=== PATIENT | male | born 1950 | race Caucasian/White ===

== ENCOUNTER → 2020-05-25 13:55 | Outpatient (CLI) | payer MEDICARE, OTHER, SELFPAY ==
--- NOTE | 2020-05-25 14:01 | US_ITS ---
APPROVED REPORT Exam Type: Lower Extremity Segmental Pressures Template Fitter: Asiya Kennedy RDCS Indications Rest Pain: Pressures/Indices Right Indices Left Indices Brachial 139.00 mmHg Brachial 147.00 mmHg Low Thigh 159.00 mmHg 1.08 Low Thigh 164.00 mmHg 1.12 Calf 184.00 mmHg 1.25 Calf 196.00 mmHg 1.33 Ankle(PT) 166.00 mmHg 1.13 Ankle(PT) 174.00 mmHg 1.18 Ankle(DP) 181.00 mmHg 1.23 Ankle(DP) 183.00 mmHg 1.24 Digit 132.00 mmHg 0.90 Digit 134.00 mmHg 0.91 Findings R KATHLEEN 1.1 L KATHLEEN 1.2 R TBI .9 L TBI .9 NORMAL PULSES AND WAVEFORMS Conclusion R KATHLEEN 1.1 L KATHLEEN 1.2 R TBI .9 L TBI .9 NORMAL PULSES AND WAVEFORMS Normal appearing resting noninvasive lower extremity arterial study. Electronically signed by : Jp Padilla MD 05/26/2020 16:07:10
== END ==
PROVIDERS: PCP Internal Medicine; Visit Provider Internal Medicine
DX: M79.605 Pain in left leg (principal); M79.604 Pain in right leg; R53.1 Weakness; R09.89 Other specified symptoms and signs involving the circulatory and respiratory systems
CPT/HCPCS: 93923

== ENCOUNTER 2020-10-23 18:37 | Emergency (ER) | payer MEDICARE, OTHER, SELFPAY ==
[2020-10-23 18:45] VITALS: BP 125/69; PULSE 81; RESP 20; TEMP 37.7; O2SAT 97; BMI 22.4
--- NOTE | 2020-10-23 19:14 | HMH.EDUTC ---
[facility] [place] Disposition Clinical Impression: Viral syndrome, Exposure to COVID-19 virus Disposition: Home, Self-Care Condition on Discharge: Good Instructions: DI for Viral Syndrome, Preventing the Spread of Coronavirus Discharge Instructions Additional Instructions: Drink plenty of fluids. Take tylenol for pain or fever. Return if you begin to have difficulty breathing. Follow up with your regular doctor. GO TO THE ER FOR ANY WORSENING SYMPTOMS Prescriptions: Benzonatate [Tessalon Perle 100mg Cap] 100 mg PO TIDP PRN #30 cap PRN Reason: Cough Transmission Status: Received by [id number] Azithromycin [Z-Geovanny 250mg Tab*] 250 mg PO UD DOSE PK #6 tab Transmission Status: Received by [id number] Referrals: Elian Gallegos [Primary Care Provider] - Time of Disposition: 19:42 Medical Decision Making - Medical Records Medical records reviewed: No: I reviewed the patient's medical records. - Kun Inquiry Pt receiving controlled substance: No Vital Signs: 10/23/20 18:45 Temperature 99.8 F H Temperature Source Oral Pulse Rate [Right Brachial] 81 Respiratory Rate 20 Blood Pressure [Right Arm] 125/69 Blood Pressure Mean [Right Arm] 87 Blood Pressure Source [Right Arm] Automatic Cuff Blood Pressure Position [Right Arm] Sitting 02 Sat by Pulse Oximetry 97 Oxygen Delivery Method Room Air - Lab Data Lab Results 10/23/20 18:53: Influenza Type A Ag Negative, Influenza Type B Ag Negative Orders (Tests/Meds): ORDERS Category Date Time Status Chest XR -- portable [XR chest portable] Stat Exams 10/23/20 19:21 Taken Covid-19 Nasal PCR ([facility]) Routine Lab 10/23/20 18:55 Received [facility] [place] HPI - General Stated complaint: No Energy;No appetite;Rash Time Seen by Provider: 10/23/20 19:15 Mode of Arrival: Ambulatory Source of Information: Patient Limitations: No Limitations Description of Symptoms (Recalled from Triage Doc. by RN): PATIENT C/O RASH TO ABDOMEN AND BACK, DECREASED APPETITE, AND LETHARGY SINCE SUNDAY HEENT Symptoms (Recalled from RN notes): No Resp Symptoms (Recalled from RN notes): No Skin Symptoms (Recalled from RN notes): Yes MS Symptoms (Recalled from RN notes): No Functional Status (Recalled from RN notes): wnl - History of Present Illness Provider Complaint: He states that for the past 1 week he has had fatigue and a poor appetite. He also had a rash on his abdomen and back. He has a dry cough. He denies any fever, but he has been chilling. - Related Data Home Medications Medication Instructions Recorded Confirmed Amlodipine Besylate/Benazepril 1 each PO DAILY 10/23/20 10/23/20 [Amlodipine-Benazepril 5-40 mg] Metformin HCl [Metformin HCl ER] 1,000 mg PO BID 10/23/20 10/23/20 Metoprolol Tartrate [Lopressor 25 mg PO BID 10/23/20 10/23/20 25mg tablet] Pantoprazole Sodium [Protonix 40mg 40 mg PO HS 10/23/20 10/23/20 tablet] Pravastatin Sodium [Pravachol 40mg 40 mg PO HS 10/23/20 10/23/20 Tablet] Temazepam [Restoril] 15 mg PO HSP PRN 10/23/20 10/23/20 Previous Rx's Medication Instructions Recorded Azithromycin [Z-Geovanny 250mg Tab*] 250 mg PO UD DOSE PK #6 tab 10/23/20 Benzonatate [Tessalon Perle 100mg 100 mg PO TIDP PRN #30 cap 10/23/20 Cap] Allergies Allergy/AdvReac Type Severity Reaction Status Date / Time No Known Allergies Allergy Verified 10/23/20 19:10 - Worker's Comp Is this a Worker's Comp case?: No [facility] History - Hepatitis A Screen Drug use history?: No High risk sexual behaviors?: No History of sexually transmitted infection?: No Currently employed?: No Childcare worker?: No Do you have indoor plumbing?: Yes Do you have electricity?: Yes Attestation statement:: This patient has been screened for Hepatitis A risk factors. I have reviewed the patient's past medical history: Yes Medical History: Reports:: Diabetes Mellitus Type 2 Denies:: Diabetes Mellitus Type 1 - Social History Smoking Statu
--- NOTE | 2020-10-23 19:21 | XR_ITS ---
PROCEDURE: XR CHEST PORTABLE CLINICAL HISTORY: COUGH COMPARISON: CR CXR1 CHEST-PORTABLE from 07/11/2014 CR XR CHEST 2V from 11/01/2019 FINDINGS: The cardiomediastinal silhouette and pulmonary vascularity are within normal limits. The lungs are clear without infiltrates, suspicious nodules, or pleural effusions. No acute bony abnormalities. IMPRESSION: No acute findings. Dictated by: Dr. Vivek Ledesma MD 10/24/2020 08:04 Dr. Vivek Ledesma MD in [place] 10/24/2020 08:04
[2020-10-23 19:32] LABS: UTC Influenza A Antigen Negative (Negative); UTC Influenza B Antigen Negative (Negative)
[2020-10-23 19:43] VITALS: BP 125/69; PULSE 81; RESP 20; TEMP 37.7; O2SAT 97
--- NOTE | 2020-10-23 22:26 | PC.NURSE ---
COVID results reported to ER
--- NOTE | 2020-10-24 09:10 | PC.NURSE ---
patient notified of positive covid results
== END 2020-10-23 19:49 | disposition home or self-care (01) ==
LOC: ER 18:45 → UTC 18:45
PROVIDERS: Emergency Provider Nurse Practitioner Family; PCP Internal Medicine
DX: U07.1 COVID-19 (principal); E11.9 Type 2 diabetes mellitus without complications; Z79.84 Long term (current) use of oral hypoglycemic drugs; Z79.899 Other long term (current) drug therapy
CPT/HCPCS: G0463; 71045; 87804; 99202; U0003

== ENCOUNTER 2020-10-26 11:55 | Outpatient (CLI) | payer MEDICARE, OTHER, SELFPAY ==
[2020-10-26] VITALS (10 sets, daily range): BP systolic 133–177; BP diastolic 68–117; PULSE 65–80; RESP 16–20; TEMP 36.8–37.4; O2SAT 91–95
--- NOTE | 2020-10-26 13:44 | PC.NURSE ---
pt infusion complete at this time.
--- NOTE | 2020-10-26 16:12 | PC.NURSE ---
MESERET Serrano obtaining VS prior to d/c of pt, temperature noted to be 103.3 orally. Other VS include bp 156/79 HR 74, Sa02 91% on RA, RR 20. Pt is shivering, no complaints. Notified Dr. Gallegos of abnormal temperature. Dr. Gallegos stated to give pt Tylenol 1000 mg PO one time dose, instruct pt to monitor temperature at home and treat his symptoms. Notified pharmacy of the above, spoke with Ryan.
--- NOTE | 2020-10-26 18:54 | PC.NURSE ---
Talked with pt at home, who states that he feels ok. Informed if he has any worse symptoms to return to the ER
== END 2020-10-26 17:48 | disposition home or self-care (01) ==
PROVIDERS: PCP Internal Medicine; Visit Provider Internal Medicine
DX: U07.1 COVID-19 (principal)
CPT/HCPCS: 96365

== ENCOUNTER → 2021-03-22 16:44 | Outpatient (CLI) | payer MEDICARE, OTHER, SELFPAY ==
--- NOTE | 2021-03-22 16:47 | MR_ITS ---
PROCEDURE: MR LUMBAR SPINE WO CON CLINICAL INDICATION: LBP, LEFT BUTTOCK PAIN Lt hip pain x1.5months. Burning sensation in lt foot. Pain in lower lt leg. No prior. COMPARISON: CT CT ABDOMEN PELVIS WO CON from 11/01/2019 TECHNIQUE: Standard multiplanar multiecho sequences are performed without contrast. 3-D MIP and myelographic images are also rendered and reviewed FINDINGS: There is normal alignment. The spinal cord ends at the T12-L1 level. L1-L2: Mild degenerative disc disease with facet and ligamentum hypertrophic change with mild bilateral lateral recess and foraminal narrowing. L2-L3: Bulging disc with facet and ligamentum hypertrophic change causing severe right lateral recess narrowing and moderate left lateral recess narrowing and with moderate bilateral foraminal narrowing with borderline bony canal stenosis. There is transverse narrowing of the canal is well. L3-L4: Mild facet and ligamentum hypertrophic change with mild bilateral foraminal narrowing. L4-5: Bulging disc with facet and ligamentum hypertrophic change. There is moderate to severe right foraminal narrowing and severe left foraminal narrowing with hypertrophic change from the left superior facet of L5 impinging upon the exiting left L4 nerve root. There is 3 mm anterolisthesis of L4. There is transverse narrowing of the canal at 10 mm with bilateral lateral recess narrowing left greater than right L5-S1: L5 is a transitional segment. There is mild facet hypertrophic change slightly greater on the left. IMPRESSION: Abnormal MRI of the lumbar spine with multilevel lumbar spondylosis resulting in lateral recess and foraminal narrowing and borderline canal stenosis. Please see above for detailed description at each level. No extruded herniated disc Dictated by: Jp Padilla MD 03/24/2021 08:27 Jp Padilla MD in [place] 03/24/2021 08:27
== END ==
PROVIDERS: PCP Internal Medicine; Visit Provider Internal Medicine
DX: M54.5 Low back pain (principal)
CPT/HCPCS: 72148; 76376

== ENCOUNTER → 2021-04-11 14:49 | Outpatient (POV) | payer MEDICARE, OTHER, SELFPAY ==
[2021-04-11 15:15] VITALS: BP 118/88; PULSE 75; RESP 18; O2SAT 97; BMI 22.4
--- NOTE | 2021-04-11 15:53 | HMH.PMCON ---
Assessment and Plan (1) Degenerative joint disease (DJD) of lumbar spine Status: Chronic Category: Medical Code(s): M47.816 - Spondylosis without myelopathy or radiculopathy, lumbar region (2) Lumbar radiculopathy Status: Chronic Category: Medical Code(s): M54.16 - Radiculopathy, lumbar region - Assessment and plan all Dx Assessment and Plan for all problems:: Patient is noted to have nerve root impingement on his MRI at L4 root. We will schedule him for a lumbar epidural steroid injection at L4-L5. He is not on anticoagulation therapy. He has tried gabapentin in the past for his numbness and tingling in his feet, however, he did not get much relief. We will order him Lyrica 75 mg 1 tablet p.o. twice daily. We will see him back in clinic after his epidural steroid injection to reevaluate his symptoms. He will continue with home stretching and ice and heat therapies as well as anti-inflammatories until then. Risks and benefits of the procedure have been explained to the patient. Patient would like to proceed with the procedure. Risks and benefits of the medication have been explained in detail to the patient. The patient has been advised to consult with his/her primary care provider and pharmacist regarding drug-drug interaction of medications currently prescribed. Possible side effects of corticosteroids have been discussed with the patient. Patient has been instructed to contact the clinic with any concerns before the next appointment. Dr. Peralta has reviewed this note and agrees with this plan of care. This note was dictated using voice recognition software and make contain errors or omissions. HPI - Data of Consult Patient: new to practice Consult date: 04/11/21 Requesting Physician: Therese Hall APRN Primary Care Provider: Elian Gallegos - Consult Narrative Reason for consult: Low back pain History of present illness: Mr. Keene is a 71 year old male who presents today for consultation for low back pain. Patient says his pain is radiating into his low back, left hip and left leg and foot. Pain has been ongoing for the last 2 to 3 years. He says the pain also goes into the outer area of his left calf. He says the pain is worse with lifting. He denies any pain with leaning forward, however. Patient says he did see a neurosurgeon in the past who advised the patient he did need to undergo injective therapy, however, he deferred injections at that time. Unfortunately, the pain should not's pain has worsened. He has tried and failed conservative therapies of physical therapy for greater than 6 weeks along with continued home stretching and ice and heat therapies. He has also tried anti-inflammatories with no relief. He is here today for possible injective therapy. He is having numbness and tingling in his left foot. He says it is a severe burning sensation. He has been given gabapentin in the past which did not give him much relief. He rates his pain a 7 out of 10 today. CC: Therese Hall APRN [facility] History I have reviewed the patient's past medical history: Yes Medical History: Reports:: Diabetes Mellitus Type 2 Denies:: Diabetes Mellitus Type 1 *Have you ever received a pneumonia vaccine?: Yes *Have you received a flu vaccine this season?: Yes - *Social History Smoking Status: Current every day smoker Tobacco Type: smokeless tobacco # Packs/Day (cigarettes): 0 Alcohol Intake: never Alcohol Intake Frequency:: holidays/special occasions only *Occupational Status:: retired Housing: house Household Members: spouse *Travel in the last 8 weeks: None Family Hx:: No significant family history Review of Systems - Review of Systems Review of Systems General: No recent weight changes, no fever, no sleep disturbances Respiratory: No cough, no shortness of air, no recurring pulmonary infections Cardiovascular/peripheral vascular: No chest pain, no palpitations, no edema, no shortness of br
== END ==
PROVIDERS: PCP Internal Medicine; Visit Provider Clinical Nurse Specialist Family Health
DX: M47.896 Other spondylosis, lumbar region (principal); M54.16 Radiculopathy, lumbar region
CPT/HCPCS: 99202; G0463

== ENCOUNTER 2021-04-22 11:08 | Day surgery (SDC) | payer MEDICARE, OTHER, SELFPAY ==
[2021-04-22 11:25] VITALS: BP 139/81; PULSE 67; RESP 18; TEMP 36.6; O2SAT 97; BMI 22.8
[2021-04-22 11:58] VITALS: BP 128/78; PULSE 75; RESP 18; O2SAT 98
[2021-04-22 11:59] VITALS: BP 136/82; PULSE 71; RESP 18; O2SAT 99
--- NOTE | 2021-04-22 12:09 | HMH.PMPROC ---
- Procedure Date: 04/22/21 Time: 12:09 Anesthesiologist:: Delmy Barrett MD Complications:: None Pre-procedure Diagnosis:: degenerative disc disease of the lumbar spine, lumbar radiculopathy Post-procedure Diagnosis:: Same Indications for Procedure:: Is a very pleasant 71-year-old white male who presents today with chronic low back pain dating primarily to his left lower extremity related to the above diagnosis. He has trialed and failed conservative treatment including oral pain medication and home stretching program. He is currently on Lyrica 75 mg 1 tablet p.o. twice daily. The plan for today is for the patient to undergo lumbar epidural steroid injection at L4-L5 #1. Procedure Details:: Informed consent was obtained and the risk and benefits of the procedure was explained to the patient. The patient was taken to the procedure room. The patient was placed prone on the procedure table. The patient was prepped and draped in sterile fashion. C-arm fluoroscopy was used to view the lumbar spine. Skin and subcutaneous tissues were anesthetized using lidocaine. I placed an 18-gauge epidural needle and advanced into the L4-L5 interspace using fluoroscopic guidance and [id number] to air and saline. After confirmation of needle placement in the epidural space with dye I injected 2 mL of lidocaine 1.0% with Depo-Medrol 80 mg. Patient tolerated the procedure well with no complications. Plan and Disposition:: We will follow-up with this patient in 2 weeks. Will reevaluate pain symptoms at that time.
[2021-04-22 12:20] VITALS: BP 137/80; PULSE 64; RESP 20; O2SAT 97
== END 2021-04-22 12:20 | disposition home or self-care (01) ==
LOC: SC.PAINP 11:08
PROVIDERS: PCP Internal Medicine; Visit Provider Anesthesiology Pain Medicine
DX: M51.16 Intervertebral disc disorders with radiculopathy, lumbar region (principal); E11.9 Type 2 diabetes mellitus without complications; I10 Essential (primary) hypertension; Z72.0 Tobacco use; Z79.899 Other long term (current) drug therapy
CPT/HCPCS: 62323; J1040; Q9966

== ENCOUNTER → 2021-05-12 15:37 | Outpatient (POV) | payer MEDICARE, OTHER, SELFPAY ==
[2021-05-12 15:42] VITALS: BP 138/85; PULSE 78; RESP 18; O2SAT 99; BMI 23.0
--- NOTE | 2021-05-13 07:04 | HMH.PAINSOAP ---
[facility] Pain Management SOAP Note Subjective:: Patient is a pleasant 71-year-old white male who presents today for follow-up. He is being treated for degenerative disc disease lumbar spine with lumbar radiculopathy symptoms. Patient recently underwent a lumbar epidural steroid injection at L4-L5 number 1 injection. He got excellent relief with this injection. He says he got relief for more than 2 weeks. Patient got 80% relief of his symptoms. His pain has gradually returned. He says his pain is in his low back radiating into his left lower extremity. He was much more functional following the injection and had less pain. Today, his pain is a 6 out of 10. He says he is still having weakness in his bilateral lower extremities, worse to the left leg. Patient is diabetic. He does say that the previous injection did raise his blood sugar into the 400s. He says that he was able to monitor and treat his blood glucose levels appropriately, however. He has tried and failed conservative therapies in the past which include physical therapy for more than 6 weeks and continued home stretching. He has also continue with ice and heat therapies and anti-inflammatories. The patient is not on anticoagulation therapy. He would like to proceed with a second injection. Review of Systems General: No recent weight changes, no fever, no sleep disturbances Respiratory: No cough, no shortness of air, no recurring pulmonary infections Cardiovascular/peripheral vascular: No chest pain, no palpitations, no edema, no shortness of breath Gastrointestinal: No new onset incontinence, normal bowel movements reported Genitourinary: No new onset incontinence Musculoskeletal: Low back pain with radiation into lower extremities, worse to left, weakness in left lower extremity Psychiatric: Normal mood/affect Neurological: Weakness bilateral lower extremities, worse to left Objective:: Physical exam General: Alert and oriented x3, no acute distress, pleasant and cooperative, [on room air] Lungs: Respirations even and unlabored, symmetrical chest expansion Eyes: PERRL Musculoskeletal: Flexion and extension of [] lumbar spine somewhat guarded secondary to pain, deep tendon reflexes normal, strength in upper and lower extremities [5/5], [abnormal gait noted] Neurological: Speech clear, barrel inspector equal, no gross sensory deficit Assessment:: Degenerative disc disease lumbar spine with lumbar radiculopathy symptoms Plan:: We will schedule the patient for repeat lumbar epidural steroid injection #2. He is not on any anticoagulation therapy. He got excellent relief with his previous injection. The patient got 80% relief of his symptoms. We will see him back after the injection to reevaluate his symptoms. He is diabetic and did have blood glucose levels elevate into the 400s following his first injection. He will monitor his blood glucose levels with the next injection and treat accordingly. Risks and benefits of the procedure have been explained to the patient. Patient would like to proceed with the procedure. Possible side effects of corticosteroids have been discussed with the patient. Patient has been instructed to contact the clinic with any concerns before the next appointment. Dr. Peralta has reviewed this note and agrees with this plan of care. This note was dictated using voice recognition software and make contain errors or omissions. [facility] History I have reviewed the patient's past medical history: Yes Medical History: Reports:: Diabetes Mellitus Type 2, Hypertension Denies:: Cancer, Diabetes Mellitus Type 1, MRSA, Seizures *Have you ever received a pneumonia vaccine?: Yes *Have you received a flu vaccine this season?: Yes Other Surgeries: Yes: Cholecystectomy, Other (stomach surgery) Amputation: No Fractures: No - *Social History Smoking Status: Current every day smoker Tobacco Type: smokeless tobacco # Packs/Day (cigarettes): 0 Alcohol Intake: nev
== END ==
PROVIDERS: PCP Internal Medicine; Visit Provider Clinical Nurse Specialist Family Health
DX: M51.16 Intervertebral disc disorders with radiculopathy, lumbar region (principal)
CPT/HCPCS: 99212; G0463

== ENCOUNTER 2021-05-27 10:58 | Day surgery (SDC) | payer MEDICARE, OTHER, SELFPAY ==
[2021-05-27 11:09] VITALS: BP 154/80; PULSE 62; RESP 18; TEMP 36.7; O2SAT 98; BMI 22.4
[2021-05-27 11:16] VITALS: BP 141/78; PULSE 69; RESP 18; O2SAT 94
[2021-05-27 11:18] VITALS: BP 133/79; PULSE 65; RESP 18; O2SAT 99
--- NOTE | 2021-05-27 11:31 | HMH.PMPROC ---
- Procedure Date: 05/27/21 Time: 11:31 Anesthesiologist:: Delmy Barrett MD Complications:: None Pre-procedure Diagnosis:: Degenerative disease of the lumbar spine, lumbar radiculopathy Post-procedure Diagnosis:: Same Indications for Procedure:: This patient is a very pleasant 71-year-old white male who presents today with chronic low back pain radiating into both legs related to the above diagnosis. He states that the left leg pain is slightly worse than the right leg pain. He has tried and failed conservative treatment including oral pain medication and home stretching program for greater than 6 weeks. He has also undergone a lumbar epidural steroid injection in the past at L4-L5 #1 and states that he got 80% pain relief for approximately 1 month; however today states that the pain has returned. He is requesting a repeat injection. Of note, he is a diabetic and had transiently elevated blood sugars with the last injection. He states that he closely monitored his blood sugars as he was advised. The plan for today is for the patient to undergo repeat lumbar epidural steroid injection fluoroscopy at L4-L5 #2. Procedure Details:: Informed consent was obtained and the risk and benefits of the procedure was explained to the patient. The patient was taken to the procedure room. The patient was placed prone on the procedure table. The patient was prepped and draped in sterile fashion. C-arm fluoroscopy was used to view the lumbar spine. Skin and subcutaneous tissues were anesthetized using lidocaine. I placed an 18-gauge epidural needle and advanced into the for L4-L5 interspace using fluoroscopic guidance and [id number] to air and saline. After confirmation of needle placement in the epidural space with dye I injected 1 mL of lidocaine 1.0% with Depo-Medrol 80 mg. Patient tolerated the procedure well with no complications. Plan and Disposition:: We will follow-up with this patient in 2 weeks. Will reevaluate pain symptoms at that time. I discussed with the patient today given that he is a diabetic he should closely monitor his glucose level with a glucometer for the next 48 to 72 hours. Should he experience any symptoms such as headache, blurry vision, double vision, or any other concerning symptoms he should be evaluated by his primary care physician, urgent care, or the ER. Patient verbalized understanding. We will follow-up with him in 2 weeks for reassessment.
[2021-05-27 11:34] VITALS: BP 155/86; PULSE 59; RESP 18; O2SAT 98
== END 2021-05-27 11:35 | disposition home or self-care (01) ==
LOC: SC.PAINP 10:59
PROVIDERS: PCP Internal Medicine; Visit Provider Anesthesiology Pain Medicine
DX: M51.16 Intervertebral disc disorders with radiculopathy, lumbar region (principal); I10 Essential (primary) hypertension; E11.9 Type 2 diabetes mellitus without complications; K21.9 Gastro-esophageal reflux disease without esophagitis; M19.90 Unspecified osteoarthritis, unspecified site; Z90.49 Acquired absence of other specified parts of digestive tract
CPT/HCPCS: 62323; J1040; Q9966

== ENCOUNTER → 2021-06-30 10:07 | Outpatient (POV) | payer MEDICARE, OTHER, SELFPAY ==
[2021-06-30 10:14] VITALS: BP 133/85; PULSE 67; RESP 18; O2SAT 100; BMI 22.4
--- NOTE | 2021-06-30 10:55 | HMH.PAINSOAP ---
[facility] Pain Management SOAP Note Subjective:: Her patient is a 71-year-old white male who presents today for follow-up after lumbar epidural steroid injection #2 at L4-L5. Patient says that he did well with the injection. He says that he got about 70 to 80% relief. The pain is slowly returning, however. Patient is having pain into the low back beltline area. He says that the pain is worse when he is standing and walking and does improve somewhat with sitting. The pain does radiate into bilateral lower extremities as well. He does say the pain is worse to the left leg. He is trying failed conservative therapies of physical therapy, home stretching, anti-inflammatories. Patient is planning to travel to [place] in the next week and would like to undergo his repeat injection prior to leaving. He will be doing a great deal of walking. We will see if we can work the patient into the scheduling for a repeat injection. Review of Systems General: No recent weight changes, no fever, no sleep disturbances Respiratory: No cough, no shortness of air, no recurring pulmonary infections Cardiovascular/peripheral vascular: No chest pain, no palpitations, no edema, no shortness of breath Gastrointestinal: No new onset incontinence, normal bowel movements reported Genitourinary: No new onset incontinence Musculoskeletal: Low back pain with radiation into bilateral lower extremities, worse to left leg Psychiatric: [Normal mood/affect] Neurological: [Denies weakness in extremities], [denies balance issues] Objective:: Physical exam General: Alert and oriented x3, no acute distress, pleasant and cooperative, [on room air] Lungs: Respirations even and unlabored, symmetrical chest expansion Eyes: PERRL Musculoskeletal: Flexion and extension of lumbar [spine] somewhat guarded secondary to pain, strength in upper and lower extremities [5/5], [antalgic gait noted] Neurological: Speech clear, [lithographic etcher equal], no gross sensory deficit Assessment:: Degenerative disc disease lumbar spine with lumbar radiculopathy symptoms Plan:: We will schedule the patient for his #3 lumbar epidural steroid injection at L4-L5. He is not on any anticoagulation therapy. We will plan to see him back after the injection for reevaluation of symptoms. He has been instructed to contact clinic if he has any concerns for his next plan. Possible side effects of corticosteroids have been discussed with the patient. Risks and benefits of the procedure have been explained to the patient. Patient would like to proceed with the procedure. Patient has been instructed to contact the clinic with any concerns before the next appointment. Dr. Peralta has reviewed this note and agrees with this plan of care. This note was dictated using voice recognition software and make contain errors or omissions. [facility] History I have reviewed the patient's past medical history: Yes Medical History: Reports:: Diabetes Mellitus Type 2, Hyperlipidemia, Hypertension Denies:: Cancer, Diabetes Mellitus Type 1, MRSA, Seizures *Have you ever received a pneumonia vaccine?: Yes *Have you received a flu vaccine this season?: No Other Medical History: Reports: Arthritis Other Surgeries: Yes: Cholecystectomy, Other (stomach surgery) Amputation: No Fractures: No - *Social History Smoking Status: Current every day smoker Tobacco Type: smokeless tobacco # Packs/Day (cigarettes): 0 Alcohol Intake: never Alcohol Intake Frequency:: holidays/special occasions only *Occupational Status:: unemployed Housing: house Household Members: other *Travel in the last 8 weeks: None Family Hx:: No significant family history
== END ==
PROVIDERS: PCP Internal Medicine; Visit Provider Clinical Nurse Specialist Family Health
DX: M51.16 Intervertebral disc disorders with radiculopathy, lumbar region (principal)
CPT/HCPCS: 99212; G0463

== ENCOUNTER 2021-07-01 12:53 | Day surgery (SDC) | payer MEDICARE, OTHER, SELFPAY ==
[2021-07-01 13:17] VITALS: BP 145/79; PULSE 67; RESP 18; TEMP 37; O2SAT 97; BMI 22.4
[2021-07-01 13:30] VITALS: BP 132/80; PULSE 68; RESP 18; O2SAT 99
--- NOTE | 2021-07-01 13:39 | P.PCN_ITS ---
- Procedure Date: 07/01/21 Time: 13:39 Anesthesiologist:: Will Peralta MD Complications:: None Pre-procedure Diagnosis:: Degenerative disc disease of lumbar spine with lumbar radiculopathy symptoms Post-procedure Diagnosis:: Same Indications for Procedure:: This patient is a pleasant 71-year-old white male who we are treating for low back pain with lumbar radiculopathy symptoms. He done very well with his previous epidural steroid injections. He was 89% better. He is leaving for [place] on . Pain is starting to return. We will do repeat lumbar epidural steroid injection today to help him prior to his trip. Procedure Details:: Informed consent was obtained and the risk and benefits of the procedure was explained to the patient. The patient was taken to the procedure room. The patient was placed prone on the procedure table. The patient was prepped and draped in sterile fashion. C-arm fluoroscopy was used to view the lumbar spine. Skin and subcutaneous tissues were anesthetized using lidocaine. I placed an 18-gauge epidural needle and advanced into the L4-L5 interspace using fluoroscopic guidance and [id number] to air. After confirmation of needle placement in the epidural space with dye I injected 2 mL of lidocaine 1.5% with Depo-Medrol 80 mg. Patient tolerated the procedure well with no complications. Plan and Disposition:: We will follow-up with him in 2 weeks. Will reevaluate symptoms at that time.
[2021-07-01 14:02] VITALS: BP 141/78; PULSE 66; RESP 18; O2SAT 98
== END 2021-07-01 14:03 | disposition home or self-care (01) ==
LOC: SC.PAINP 12:54
PROVIDERS: PCP Internal Medicine; Visit Provider Anesthesiology
DX: M51.16 Intervertebral disc disorders with radiculopathy, lumbar region (principal); E78.5 Hyperlipidemia, unspecified; I10 Essential (primary) hypertension; M19.90 Unspecified osteoarthritis, unspecified site; E11.9 Type 2 diabetes mellitus without complications; K21.9 Gastro-esophageal reflux disease without esophagitis; Z79.899 Other long term (current) drug therapy
CPT/HCPCS: 62323; J1040; Q9966

== ENCOUNTER → 2021-07-26 10:16 | Outpatient (POV) | payer MEDICARE, OTHER, SELFPAY ==
[2021-07-26 10:35] VITALS: BP 147/83; PULSE 69; RESP 18; O2SAT 99; BMI 22.4
--- NOTE | 2021-07-26 11:21 | HMH.PAINSOAP ---
[facility] Pain Management SOAP Note Subjective:: Patient is a 71-year-old white male who presents today for follow-up after lumbar epidural steroid injection. He did undergo injective therapy on 07/01/2021 at the L4-L5 area. Patient says due to an increased blood glucose at the day of the injection, he was only given half of the corticosteroid dose. Patient says that he does not feel he got significant relief with the injection. Previous injections were performed by Dr. Barrett. Patient feels he got better relief with Dr. Barrett perform the injections. He is having significant pain to the low back with radiation into bilateral lower extremities. He says that the pain causes numbness and tingling in his legs. He has been managed with Lyrica but says the insurance is not covering the medication. He is having to pay [id number]. He has tried taking gabapentin in the past and feels it did give him some relief. He would like to go back to gabapentin. Patient says the first 2 injections gave him up to 80% relief for 2 to 3 months. He would like to proceed with a repeat injection, but at a lower level due to the pain worsening below the area where he generally has pain. He does rate his pain a 6 out of 10 today. He has asked that Dr. Barrett perform the injection. He has tried and failed conservative therapies of physical therapy for more than 6 weeks and home stretching. He is unable to tolerate anti-inflammatories. Review of Systems General: No recent weight changes, no fever, no sleep disturbances Respiratory: No cough, no shortness of air, no recurring pulmonary infections Cardiovascular/peripheral vascular: No chest pain, no palpitations, no edema, no shortness of breath Gastrointestinal: No new onset incontinence, normal bowel movements reported Genitourinary: No new onset incontinence Musculoskeletal: Low back pain with radiation into bilateral lower extremities Psychiatric: [Normal mood/affect] Neurological: [Denies weakness in extremities], [denies balance issues] Objective:: Physical exam General: Alert and oriented x3, no acute distress, pleasant and cooperative, [on room air] Lungs: Respirations even and unlabored, symmetrical chest expansion Eyes: PERRL Musculoskeletal: Flexion and extension of lumbar [spine] somewhat guarded secondary to pain, strength in upper and lower extremities [5/5], [antalgic gait noted] Neurological: Speech clear, [risk assessor equal], no gross sensory deficit Assessment:: Degenerative disc disease lumbar spine with lumbar radiculopathy symptoms Plan:: We will stop the patient's Lyrica and start him on gabapentin 300 mg 1 tablet p.o. twice daily. He has taken this before and gotten some relief. He was getting some relief with Lyrica, but is having to pay [id number] for the medication. We will schedule him for a #1 lumbar epidural steroid injection at L5-S1. The patient is not on any anticoagulation therapy. We will plan to see him back after the injection for reevaluation of symptoms. He would like this injection to be performed in September. He will not be available to have the injection before then. We will follow-up with the patient, however, in 1 month to see if gabapentin is relieving his pain. Risks and benefits of the medication have been explained in detail to the patient. If side effects do present with the medication, she has been advised to stop the medication immediately and call the clinic. The patient has been advised to consult with his/her primary care provider and pharmacist regarding drug-drug interaction of medications currently prescribed. Risks and benefits of the medication have been explained in detail to the patient. The patient has been advised to consult with his/her primary care provider and pharmacist regarding drug-drug interaction of medications currently prescribed. Patient has been prescribed a controlled substance after being counseled on the medication, medicati
== END ==
PROVIDERS: Visit Provider Clinical Nurse Specialist Family Health
DX: M51.16 Intervertebral disc disorders with radiculopathy, lumbar region (principal)
CPT/HCPCS: 99212; G0463

== ENCOUNTER 2021-09-23 10:01 | Day surgery (SDC) | payer MEDICARE, OTHER, SELFPAY ==
[2021-09-23 10:27] VITALS: BP 131/73; PULSE 68; RESP 18; TEMP 36.4; O2SAT 99; BMI 22.4
[2021-09-23 10:49] VITALS: BP 135/87; PULSE 68; RESP 18; O2SAT 100
[2021-09-23 10:51] VITALS: BP 129/79; PULSE 70; RESP 18; O2SAT 100
[2021-09-23 11:03] VITALS: BP 148/85; PULSE 67; RESP 20; O2SAT 99
--- NOTE | 2021-09-23 11:03 | HMH.PMPROC ---
- Procedure Date: 09/23/21 Time: 11:03 Anesthesiologist:: Will Peralta MD Complications:: None Pre-procedure Diagnosis:: Degenerative disc disease of lumbar spine with lumbar radiculopathy symptoms Post-procedure Diagnosis:: Same Indications for Procedure:: Patient is a pleasant 71-year-old white male who we are treating for low back pain with lumbar radiculopathy symptoms. He has increasing pain in his back radiating down his legs. Left is greater than right. We will do a lumbar pleural steroid injection today to see if this helps with his pain symptoms. Procedure Details:: Informed consent was obtained and the risk and benefits of the procedure was explained to the patient. The patient was taken to the procedure room. The patient was placed prone on the procedure table. The patient was prepped and draped in sterile fashion. C-arm fluoroscopy was used to view the lumbar spine. Skin and subcutaneous tissues were anesthetized using lidocaine. I placed an 18-gauge epidural needle and advanced into the L4-L5 interspace using fluoroscopic guidance and [id number] to air. After confirmation of needle placement in the epidural space with dye I injected 2 mL of lidocaine 1.5% with Depo-Medrol 80 mg. Patient tolerated the procedure well with no complications. Plan and Disposition:: We will follow-up with him in 2 weeks. Will reevaluate symptoms at that time.
== END 2021-09-23 11:04 | disposition home or self-care (01) ==
LOC: SC.PAINP 10:02
PROVIDERS: PCP Internal Medicine; Visit Provider Anesthesiology
DX: M51.16 Intervertebral disc disorders with radiculopathy, lumbar region (principal); E78.5 Hyperlipidemia, unspecified; I10 Essential (primary) hypertension; E11.9 Type 2 diabetes mellitus without complications; Z72.0 Tobacco use; Z90.49 Acquired absence of other specified parts of digestive tract; Z79.4 Long term (current) use of insulin; Z79.899 Other long term (current) drug therapy
CPT/HCPCS: 62323; J1040; Q9966

== ENCOUNTER → 2021-10-11 10:15 | Outpatient (POV) | payer MEDICARE, OTHER, SELFPAY ==
[2021-10-11 10:20] VITALS: BP 174/93; PULSE 82; RESP 18; O2SAT 98; BMI 22.4
--- NOTE | 2021-10-11 10:39 | HMH.PAINSOAP ---
[facility] Pain Management SOAP Note Subjective:: Patient is a 71-year-old white male who presents today for follow-up after lumbar epidural steroid injection at L4-L5. Patient says that he did well with the injection and rates his pain a 4 out of 10 today. He does get approximately 3 to 4 weeks of relief with the injections at about 70 to 80%. He does say he has difficulty standing and walking for prolonged periods due to pain. He does do outdoor activity in his garage and says that the pain does worsen when outside and for prolonged walking. He does not want to schedule any further injective therapy until December. He does continue with home stretching. Review of Systems General: No recent weight changes, no fever, no sleep disturbances Respiratory: No cough, no shortness of air, no recurring pulmonary infections Cardiovascular/peripheral vascular: No chest pain, no palpitations, no edema, no shortness of breath Gastrointestinal: No new onset incontinence, normal bowel movements reported Genitourinary: No new onset incontinence Musculoskeletal: Radiation into bilateral lower extremities Psychiatric: [Normal mood/affect] Neurological: [Denies weakness in extremities], [denies balance issues] Objective:: Physical exam General: Alert and oriented x3, no acute distress, pleasant and cooperative Lungs: Respirations even and unlabored, symmetrical chest expansion Eyes: PERRL Musculoskeletal: Flexion and extension of lumbar [spine] somewhat guarded secondary to pain, [antalgic gait noted] Neurological: Speech clear, no gross sensory deficit Assessment:: Degenerative disc disease lumbar spine with lumbar radiculopathy symptoms Plan:: We will start the patient on tramadol 50 mg 1 tablet p.o. 3 times daily. We will see if this helps in between injective therapy. We will schedule the patient to return in December. He would like to undergo injective therapy in December. Risks and benefits of the medication have been explained in detail to the patient. The patient does understand the risk of dependence on the medication when given over a prolonged period. Patient has been advised of risks of oversedation with the prescribed medication. Narcan has been offered to the paitent in the event of oversedation. Patient has been advised that a family member should also be educated regarding administration of Narcan. The patient has been advised to consult with his/her primary care provider and pharmacist regarding drug-drug interaction of medications currently prescribed. Patient has been prescribed a controlled substance after being counseled on the medication, medication safety, and possible side effects. LOS report has been obtained and reviewed prior to prescription and found to be appropriate. Opioid contract was reviewed and signed by the patient, and that they have agreed to all of the terms set forth by our compliance program. Patient has been instructed to contact the clinic with any concerns before the next appointment. Dr. Peralta has reviewed this note and agrees with this plan of care. This note was dictated using voice recognition software and make contain errors or omissions. [facility] History I have reviewed the patient's past medical history: Yes Medical History: Reports:: Diabetes Mellitus Type 2, Hyperlipidemia, Hypertension Denies:: Cancer, Diabetes Mellitus Type 1, MRSA, Seizures *Have you ever received a pneumonia vaccine?: Yes *Have you received a flu vaccine this season?: Yes Other Medical History: Reports: Arthritis. Denies: Blood Transfusion Reaction Other Surgeries: Yes: Cholecystectomy, Other (stomach surgery) Amputation: No Fractures: No - *Social History Smoking Status: Current every day smoker Tobacco Type: smokeless tobacco # Packs/Day (cigarettes): 0 Alcohol Intake: never Alcohol Intake Frequency:: holidays/special occasions only *Occupational Status:: unemployed Housing: house Household Members: s
== END ==
PROVIDERS: Visit Provider Clinical Nurse Specialist Family Health
DX: M51.16 Intervertebral disc disorders with radiculopathy, lumbar region (principal)
CPT/HCPCS: 99212; G0463

== ENCOUNTER 2021-10-28 10:32 | Emergency (ER) | payer MEDICARE, OTHER, SELFPAY ==
[2021-10-28 10:33] VITALS: BP 139/83; PULSE 72; RESP 20; TEMP 37.1; O2SAT 99; BMI 22.4
[2021-10-28 11:04] VITALS: BP 137/79; PULSE 63; O2SAT 97
[2021-10-28 11:10] LABS: Coronavirus 19, PCR Not Detected (NotDetected); Influenza A, PCR Not Detected (NotDetected); Influenza B, PCR Not Detected (NotDetected)
[2021-10-28 11:21] LABS: Chloride 99 mmol/L (98-107); Sodium 135 mmol/L (136-145)
[2021-10-28 11:22] LABS: Basophils # 0.1 K/mm3 (0-0.2); Basophils % 2.4 % (0.1-2.0); Eosinophils # 0.1 K/mm3 (0.0-0.4); Eosinophils % 2.9 % (0.1-12.0); Hemoglobin 16.1 g/dL (14.1-18.0); Lymphocytes # 1.6 K/mm3 (0.7-4.5); Lymphocytes % 38.3 % (10-50); Mean Corpuscular HGB Conc 32.9 g/dL (31.8-35.4); Mean Corpuscular Volume 94.3 fl (80-94); Mean Platelet Volume 8.2 fl (7.4-10.4); Monocytes # 0.3 K/mm3 (0.1-1.0); Neutrophils # 2.1 K/mm3 (1.8-7.8); Neutrophils % 50.4 % (37.0-80.0); Platelet Count 178 K/mm3 (142-424); Potassium 3.8 mmoL/L (3.5-5.1); Red Cell Distribution Width 12.9 % (11.5-17.5); White Blood Count 4.2 K/mm3 (4.8-10.8)
[2021-10-28 11:24] LABS: Alanine Aminotransferase 28 U/L (12-78); Albumin Level 4.1 g/dl (3.5-5.0); Albumin/Globulin Ratio 1.5 (1.1-1.8); Alkaline Phosphatase 94 U/L (38-126); Anion Gap 8.8 mEq/L (5-15); Aspartate Amino Transferase 29 U/L (17-59); Bilirubin,Total 4.3 mg/dl (0.2-1.3); Blood Urea Nitrogen 14 mg/dl (9-20); Calcium 9.1 mg/dl (8.4-10.2); Carbon Dioxide 31 mmol/L (22.0-30.0); Creatinine Clearance Estimated 72 mL/min (50-200); Estimated Glomerular Filt Rate 73 ml/min (>60); GFR (African American) 89 ML/MIN (>60); Globulin 2.7 g/dL (1.3-3.2); Glucose 222 mg/dl (74-100); Total Protein,Serum 6.8 g/dl (6.3-8.2)
[2021-10-28 11:30] VITALS: BP 169/93; PULSE 59; O2SAT 96
--- NOTE | 2021-10-28 11:30 | HMH.EDGENADL ---
ED Disposition Clinical Impression: Gastroenteritis Disposition: Home, Self-Care Condition on Discharge: Good Instructions: DI for Viral Gastroenteritis -- Adult Additional Instructions: Zofran as needed for nausea and vomiting. Continue Tylenol or ibuprofen for headaches, fever, pain. Return to the emergency department if any worsening abdominal pain, persistent vomiting, severe headache, persistent fever greater than 101.5. Follow-up with primary care provider next week if not resolved. Prescriptions: Ondansetron [Zofran 4mg ODT] 4 mg PO TIDP PRN #10 tab PRN Reason: Nausea And Vomiting Transmission Status: Pending to [id number] Referrals: Elian Gallegos [Primary Care Provider] - - Critical Care Critical Care Time: No Attestation: On 10/28/21, the high probability of a clinically significant, sudden or life threatening deterioration of the following system(s) required my full and direct attention, intervention and personal management. The time I documented below is in addition to time spent performing reported procedures but includes the following listed in this critical care notation. Medical Decision Making - Kun Inquiry Pt receiving controlled substance: No Vital Signs: 10/28/21 10:33 10/28/21 11:04 Temperature 98.7 F Temperature Source Oral Pulse Rate 63 Pulse Rate [Left Radial] 72 Respiratory Rate 20 Blood Pressure 137/79 Blood Pressure [Right Arm] 139/83 Blood Pressure Mean 92 Blood Pressure Mean [Right Arm] 101 Blood Pressure Source [Right Arm] Automatic Cuff Blood Pressure Position [Right Arm] Sitting 02 Sat by Pulse Oximetry 99 97 Oxygen Delivery Method Room Air - Lab Data Lab Results 10/28/21 10:58: WBC 4.2 L, RBC 5.20, Hgb 16.1, Hct 49.0, MCV 94.3 H, MCH 31.0, MCHC 32.9, RDW 12.9, Plt Count 178, MPV 8.2, Neut % (Auto) 50.4, Lymph % (Auto) 38.3, [place] % (Auto) 6.0, Eos % (Auto) 2.9, Baso % (Auto) 2.4 H, Neut # (Auto) 2.1, Lymph # (Auto) 1.6, [place] # (Auto) 0.3, Eos # (Auto) 0.1, Baso # (Auto) 0.1 10/28/21 10:58: Sodium 135 L, Potassium 3.8, Chloride 99, Carbon Dioxide 31 H, Anion Gap 8.8, BUN 14, Creatinine 1.00, Estimated Creat Clear 72, Estimated GFR 73, Est GFR ( Amer) 89, Glucose 222 H, Calcium 9.1, Total Bilirubin 4.3 H, AST 29, ALT 28, Alkaline Phosphatase 94, Total Protein 6.8, Albumin 4.1, Globulin 2.7, Albumin/Globulin Ratio 1.5 10/28/21 10:58: SARS-CoV-2 (PCR) Not detected, Influenza A Untype (PCR) Not detected, Influenza Type B (PCR) Not detected Result diagrams: 10/28/21 10:58 10/28/21 10:58 Orders (Tests/Meds): ED MEDICATIONS Discontinued Medications Generic Name Dose Route Start Last Admin Trade Name Freq PRN Reason Stop Dose Admin Sodium Chloride 1,000 mls @ 999 mls/hr 10/28/21 11:00 10/28/21 11:06 Sod Chlor 0.9% 1000ml Bag IV 10/28/21 12:00 999 mls/hr .Q1H1M MARCO Administration Ketorolac Tromethamine 30 mg 10/28/21 11:00 10/28/21 11:06 Ketorolac 30mg/Ml Vial IV 10/28/21 11:01 30 mg ONCE ONE Administration Ondansetron HCl 4 mg 10/28/21 11:00 10/28/21 11:06 Ondansetron 4mg/2ml Vial IV 10/28/21 11:01 4 mg ONCE ONE Administration - Reevaluation(s) Time: 12:12 Reevaluation #1: States he feels pretty good. No headache. No nausea. States he has a little bit of abdominal cramping. Abdomen examined, nontender. Says he feels like being discharged and going home. Medical Decision Narrative: Received Toradol and Zofran prior to my evaluation. States he already feels better. No nausea. No headache. General Adult HPI - General Chief complaint: Headache Stated complaint: PETERSON, vomiting Time Seen by Provider: 10/28/21 11:30 Mode of Arrival: Ambulatory Limitations: No Limitations Description of Symptoms (Recalled from ER Triage Doc. by RN): c/o PETERSON and nausea off and on over the past week. Had a few days of vomiting but that has gotten better over the past day. Denies any abdominal p
[2021-10-28 12:00] VITALS: BP 146/79; PULSE 78; O2SAT 96
[2021-10-28 12:23] VITALS: BP 146/79; PULSE 78; RESP 20; TEMP 37.1; O2SAT 96
== END 2021-10-28 12:24 | disposition home or self-care (01) ==
PROVIDERS: Emergency Provider Emergency Medicine; PCP Internal Medicine
DX: K52.9 Noninfective gastroenteritis and colitis, unspecified (principal); E11.9 Type 2 diabetes mellitus without complications; E78.5 Hyperlipidemia, unspecified; I10 Essential (primary) hypertension; F17.210 Nicotine dependence, cigarettes, uncomplicated
CPT/HCPCS: 80053; 85025; 96365; 96375; 99283; C9803; J2405; U0003; U0005

== ENCOUNTER → 2021-10-31 17:52 | Outpatient (CLI) | payer MEDICARE, OTHER, SELFPAY ==
[2021-10-31 19:12] LABS: Amylase 31 U/L (30-110)
== END ==
PROVIDERS: Visit Provider Internal Medicine
DX: R10.9 Unspecified abdominal pain (principal)
CPT/HCPCS: 82150

== ENCOUNTER 2021-11-20 09:30 | Emergency (ER) | payer MEDICARE, OTHER, SELFPAY ==
[2021-11-20] VITALS (13 sets, daily range): BP systolic 114–157; BP diastolic 78–98; PULSE 63–94; RESP 13–22; TEMP 36.4; O2SAT 94–100; BMI 22.1
--- NOTE | 2021-11-20 09:39 | ECG_ITS ---
APPROVED REPORT Exam: Resting ECG HR:63 bpm ECG Measurements Heart Rate 63 AXES FL 161 P 65 QRSd 86 QRS 61 QT 398 T 69 QTc 406 Conclusion SINUS RHYTHM SEPTAL MYOCARDIAL INFARCTION , PROBABLY OLD [40+ ms Q WAVE IN V1/V2] ABNORMAL ECG UNCONFIRMED REPORT Electronically signed by : Sergio Kraft MD 11/21/2021 17:28:30
[2021-11-20 10:07] LABS: Basophils # 1.8 K/mm3 (0-0.2); Eosinophils # 0.2 K/mm3 (0.0-0.4); Eosinophils % 3.2 % (0.1-12.0); Hematocrit 56.4 % (42.0-52.0); Hemoglobin 15.9 g/dL (14.1-18.0); Lymphocytes # 3.3 K/mm3 (0.7-4.5); Lymphocytes % 53.8 % (10-50); Mean Corpuscular HGB Conc 28.2 g/dL (31.8-35.4); Mean Corpuscular Hemoglobin 30.6 pg (27.0-31.2); Mean Corpuscular Volume 108.6 fl (80-94); Mean Platelet Volume 24.4 fl (7.4-10.4); Monocytes # 0.4 K/mm3 (0.1-1.0); Neutrophils # 2.2 K/mm3 (1.8-7.8); Neutrophils % 37.1 % (37.0-80.0); Platelet Count 175 K/mm3 (142-424); Red Blood Count 5.19 M/mm3 (4.60-6.20); Red Cell Distribution Width 16.1 % (11.5-17.5); White Blood Count 6.1 K/mm3 (4.8-10.8)
[2021-11-20 10:10] LABS: Alanine Aminotransferase 32 U/L (12-78); Albumin Level 4.6 g/dl (3.5-5.0); Albumin/Globulin Ratio 1.8 (1.1-1.8); Alkaline Phosphatase 91 U/L (38-126); Anion Gap 12.9 mEq/L (5-15); Aspartate Amino Transferase 41 U/L (17-59); Bilirubin,Total 4.4 mg/dl (0.2-1.3); Blood Urea Nitrogen 11 mg/dl (9-20); Calcium 9.7 mg/dl (8.4-10.2); Carbon Dioxide 29 mmol/L (22.0-30.0); Chloride 102 mmol/L (98-107); Creatinine Clearance Estimated 64 mL/min (50-200); Estimated Glomerular Filt Rate 66 ml/min (>60); GFR (African American) 79 ML/MIN (>60); Globulin 2.6 g/dL (1.3-3.2); Glucose 185 mg/dl (74-100); Potassium 3.9 mmoL/L (3.5-5.1); Sodium 140 mmol/L (136-145); Total Protein,Serum 7.2 g/dl (6.3-8.2)
[2021-11-20 10:11] LABS: MANUAL DIFFERENTIAL MANUAL DIFFERENTIAL (MANUAL DIFF)
[2021-11-20 10:19] LABS: Lactic Acid 1.8 mmol/L (0.7-2.1)
--- NOTE | 2021-11-20 10:24 | CT_ITS ---
PROCEDURE INFORMATION: Exam: CT Abdomen And Pelvis With Contrast Exam date and time: 11/20/2021 10:24 AM Age: 71 years old Clinical indication: Abdominal tenderness and nausea and vomiting; Additional info: Anorectal abscess vs other. , Nausea, vomiting, abd pain TECHNIQUE: Imaging protocol: Computed tomography of the abdomen and pelvis with contrast. Radiation optimization: All CT scans at this facility use at least one of these dose optimization techniques: automated exposure control; mA and/or kV adjustment per patient size (includes targeted exams where dose is matched to clinical indication); or iterative reconstruction. Contrast material: ISOVUE; Contrast volume: 75 ml; Contrast route: IV; COMPARISON: CT ABDOMEN PELVIS WO CON 11/01/2019 11:32 AM FINDINGS: Liver: Hepatic steatosis. Gallbladder and bile ducts: Cholecystectomy. Pancreas: A large cystic lesion in the pancreatic body and tail measures up to 4.0 x 9.9 x 4.3 cm, decreased in size from 11/01/2019 when it measured 5.5 x 12.7 x 6.6 cm. No evidence of acute inflammatory changes involving the pancreas. Spleen: Calcified splenic granuloma. Adrenal glands: Normal. No mass. Kidneys and ureters: Left renal cyst. Nonobstructing left renal calculus measures 6 mm. No hydronephrosis. Stomach and bowel: Unremarkable. No obstruction. No mucosal thickening. Appendix: No evidence of appendicitis. Intraperitoneal space: Unremarkable. No free air. No significant fluid collection. Vasculature: Unremarkable. No abdominal aortic aneurysm. Lymph nodes: Unremarkable. No enlarged lymph nodes. Urinary bladder: Unremarkable as visualized. Reproductive: Prostatomegaly. Bones/joints: Unremarkable. No acute fracture. Soft tissues: Bilateral gynecomastia. IMPRESSION: 1. No acute findings in the abdomen or pelvis. 2. Large cystic lesion in the pancreas may again reflect a pseudocyst and is decreased in size from 11/01/2019. COMMENTS: Consistent with the [employer]'s Incidental Findings Committee white paper (J Am Callie Radiol 2018): Any incidental renal lesion less than 1 cm or classified as too small to characterize, or any incidental cystic renal lesion characterized as simple-appearing, is likely benign. No follow-up imaging is recommended for these lesions per consensus recommendations based on imaging criteria.
--- NOTE | 2021-11-20 10:37 | PC.NURSE ---
Pt to CT
--- NOTE | 2021-11-20 10:39 | PC.NURSE ---
radiology at bedside
--- NOTE | 2021-11-20 10:40 | PC.NURSE ---
pt to radiology
[2021-11-20 10:41] LABS: Lipase 30 U/L (23-300)
--- NOTE | 2021-11-20 10:49 | PC.NURSE ---
pt returned to room from radiology.. placed back on cardiac monitoring and vital signs.
[2021-11-20 10:51] LABS: Campylobacter Not Detected (NotDetected); Clostridium Difficile A/B, PCR Not Detected (NotDetected); Plesimonas Shigalloides, PCR Not Detected (NotDetected); Salmonella, PCR Not Detected (NotDetected)
[2021-11-20 10:52] LABS: Adenovirus F 40/41, stool Not Detected (NotDetected); Astrovirus Not Detected (NotDetected); Cryptosporidium Not Detected (NotDetected); Cyclospora Cayetanesis Not Detected (NotDetected); Entamoeba histolytica Not Detected (NotDetected); Enteroaggregative E coli Not Detected (NotDetected); Enteropathogenic E coli Not Detected (NotDetected); Enterotoxigenic E coli Not Detected (NotDetected); Giardia lamblia Not Detected (NotDetected); Norovirus Not Detected (NotDetected); Rotavirus A Not Detected (NotDetected); Sapovirus Not Detected (NotDetected); Shiga-like toxin E coli Not Detected (NotDetected); Shigella Enterovasive E coli Not Detected (NotDetected); Vibrio Cholerae Not Detected (NotDetected); Vibrio, PCR Not Detected (NotDetected); Yersinia Entercolitica, PCR Not Detected (NotDetected)
[2021-11-20 10:57] LABS: Troponin I < 0.01 ng/ml (0.00-0.034)
[2021-11-20 11:11] LABS: Eosinophils % 3 % (0-3); Lymphocytes % 59 % (10-50); Monocytes % 9 % (2-9); Neutrophils % 29 % (42-76); Platelet Estimate Normal; Total Cells Counted 100
[2021-11-20 11:12] LABS: Macrocytosis 2+
[2021-11-20 11:21] LABS: Microscopic, Urine URINE MICROSCOPIC (MICROSCOPIC)
[2021-11-20 11:23] LABS: Appearance,Urine CLEAR (Clear); Bilirubin,Urine Negative (Negative); Blood, Urine Negative (Negative); Color,Urine YELLOW (Yellow); Glucose,Urine (UA) TRACE (Negative); Ketones,Urine TRACE (Negative); Leukocyte Esterase,Urine Negative (Negative); Nitrate,Urine Negative (Negative); PH,Urine 7.5 (5.0-8.5); Protein,Urine Negative (Negative); Specific Gravity, Urine 1.015 (1.005-1.030)
--- NOTE | 2021-11-20 11:35 | HMH.EDGENADL ---
ED Disposition Clinical Impression: Mild dehydration Nausea & vomiting Qualifiers: Vomiting type: unspecified Qualified Code(s): R11.2 - Nausea with vomiting, unspecified Disposition: Home, Self-Care Condition on Discharge: Good Additional Instructions: Continue to monitor your condition at home. If your condition worsens or any other concerns arise, please return to the emergency department. Otherwise, please follow-up with your primary care physician. Referrals: Elian Gallegos [Primary Care Provider] - - Critical Care Critical Care Time: No Attestation: On 11/20/21, the high probability of a clinically significant, sudden or life threatening deterioration of the following system(s) required my full and direct attention, intervention and personal management. The time I documented below is in addition to time spent performing reported procedures but includes the following listed in this critical care notation. Medical Decision Making - Medical Records Medical records reviewed: Yes: I reviewed the patient's medical records. - Kun Inquiry Pt receiving controlled substance: No Vital Signs: 11/20/21 09:31 11/20/21 10:00 11/20/21 10:30 Temperature 97.6 F Temperature Source Oral Pulse Rate 67 Pulse Rate [Right Radial] 63 Respiratory Rate 22 15 Blood Pressure 150/80 H 149/83 H Blood Pressure [Right Arm] 151/87 H Blood Pressure Mean 121 117 Blood Pressure Mean [Right Arm] 108 Blood Pressure Source [Right Arm] Automatic Cuff Blood Pressure Position [Right Arm] Sitting 02 Sat by Pulse Oximetry 100 99 Oxygen Delivery Method Room Air 11/20/21 11:00 11/20/21 11:30 11/20/21 12:00 Temperature Temperature Source Pulse Rate 73 71 76 Pulse Rate [Right Radial] Respiratory Rate 17 18 14 Blood Pressure 128/78 131/79 129/79 Blood Pressure [Right Arm] Blood Pressure Mean 108 89 Blood Pressure Mean [Right Arm] Blood Pressure Source [Right Arm] Blood Pressure Position [Right Arm] 02 Sat by Pulse Oximetry 100 94 L 97 Oxygen Delivery Method 11/20/21 12:30 11/20/21 13:06 11/20/21 13:12 Temperature Temperature Source Pulse Rate 71 94 H 82 Pulse Rate [Right Radial] Respiratory Rate 15 18 20 Blood Pressure 114/78 153/95 H 146/95 H Blood Pressure [Right Arm] Blood Pressure Mean 89 108 Blood Pressure Mean [Right Arm] Blood Pressure Source [Right Arm] Blood Pressure Position [Right Arm] 02 Sat by Pulse Oximetry 97 97 96 Oxygen Delivery Method 11/20/21 13:30 11/20/21 13:45 Temperature Temperature Source Pulse Rate 89 86 Pulse Rate [Right Radial] Respiratory Rate 13 16 Blood Pressure 154/98 H 146/89 H Blood Pressure [Right Arm] Blood Pressure Mean Blood Pressure Mean [Right Arm] Blood Pressure Source [Right Arm] Blood Pressure Position [Right Arm] 02 Sat by Pulse Oximetry 97 94 L Oxygen Delivery Method - Lab Data Lab results reviewed: Yes: I reviewed the patient's lab results. Lab Results 11/20/21 09:44: WBC 6.1, RBC 5.19, Hgb 15.9, Hct 56.4 H, MCV 108.6 H, MCH 30.6, MCHC 28.2 L, RDW 16.1, Plt Count 175, MPV 24.4 H, Neut % (Auto) 37.1, Lymph % (Auto) 53.8 H, [place] % (Auto) 6.0, Eos % (Auto) 3.2, Baso % (Auto) 30.0 H, Neut # (Auto) 2.2, Lymph # (Auto) 3.3, [place] # (Auto) 0.4, Eos # (Auto) 0.2, Baso # (Auto) 1.8 H, Total Counted 100, Neutrophils % (Manual) 29 L, Lymphocytes % (Manual) 59 H, Monocytes % (Manual) 9, Eosinophils % (Manual) 3, Platelet Estimate Normal, Macrocytosis 2+ 11/20/21 09:44: Sodium 140, Potassium 3.9, Chloride 102, Carbon Dioxide 29, Anion Gap 12.9, BUN 11, Creatinine 1.10, Estimated Creat Clear 64, Estimated GFR 66, Est GFR ( Amer) 79, Glucose 185 H, Calcium 9.7, Total Bilirubin 4.4 H, AST 41, ALT 32, Alkaline Phosphatase 91, Total Protein 7.2, Albumin 4.6, Globulin 2.6, Albumin/Globulin Ratio 1.8 11/20/21 09:44: Lactate 1.8 11/20/21 09:44: Troponin I < 0.01, Lipase 30 11/20/21 11:15: Urine
[2021-11-20 11:36] LABS: Renal Epithelial Cells,Urine Occasional #/lpf (0); WBC,Urine Occasional #/hpf (0-3)
--- NOTE | 2021-11-20 12:43 | PC.NURSE ---
dietary brought patient at lunch tray. he is eating at this time. call light within reach.
--- NOTE | 2021-11-20 12:49 | CT_ITS ---
PROCEDURE INFORMATION: Exam: CT Head Without Contrast Exam date and time: 11/20/2021 12:49 PM Age: 71 years old Clinical indication: Pain; Headache; Additional info: New PETERSON, worse in am, 2-3 wks TECHNIQUE: Imaging protocol: Computed tomography of the head without contrast. Radiation optimization: All CT scans at this facility use at least one of these dose optimization techniques: automated exposure control; mA and/or kV adjustment per patient size (includes targeted exams where dose is matched to clinical indication); or iterative reconstruction. COMPARISON: CT HEAD/BRAIN WO CON 11/01/2019 11:28 AM FINDINGS: Brain: The brain demonstrates diffuse volume loss. There is white matter hypodensity most consistent with chronic small vessel ischemic change. There are small foci of low attenuation in the basal ganglia bilaterally related to chronic lacunar infarctions. Cerebral ventricles: The ventricles and CSF spaces are proportionately enlarged. Paranasal sinuses: Visualized sinuses are unremarkable. No fluid levels. Mastoid air cells: Visualized mastoid air cells are well aerated. Vasculature: There is enhancement of the vascular structures related to the recent administration of IV contrast. Bones/joints: No acute fracture. Soft tissues: Unremarkable. IMPRESSION: 1. Atrophy and the sequela of prior ischemic change. 2. No acute intracranial abnormality. 3. There is enhancement of the vascular structures related to the recent administration of IV contrast.
--- NOTE | 2021-11-20 13:00 | PC.NURSE ---
Pt to CT
--- NOTE | 2021-11-20 13:12 | PC.NURSE ---
lab at bedside
[2021-11-20 13:59] LABS: Troponin I < 0.01 ng/ml (0.00-0.034)
== END 2021-11-20 14:45 | disposition home or self-care (01) ==
PROVIDERS: Emergency Provider Emergency Medicine; PCP Internal Medicine
DX: E86.0 Dehydration (principal); E11.9 Type 2 diabetes mellitus without complications; E78.5 Hyperlipidemia, unspecified; I10 Essential (primary) hypertension; F17.290 Nicotine dependence, other tobacco product, uncomplicated; R19.7 Diarrhea, unspecified
CPT/HCPCS: 70450; 74177; 80053; 81001; 83605; 83690; 84484; 85007; 85025; 87040; 87205; 87507; 93005; 96365; 99284; C9803; Q9967; U0003; U0005

== ENCOUNTER → 2021-12-14 12:05 | Outpatient (CLI) | payer MEDICARE, OTHER, SELFPAY ==
[2021-12-14 13:28] LABS: Basophils # 0.1 K/mm3 (0-0.2); Basophils % 1.5 % (0.1-2.0); Eosinophils # 0.2 K/mm3 (0.0-0.4); Eosinophils % 3.3 % (0.1-12.0); Hematocrit 43.6 % (42.0-52.0); Hemoglobin 14.7 g/dL (14.1-18.0); Lymphocytes # 2.1 K/mm3 (0.7-4.5); Lymphocytes % 35.5 % (10-50); Mean Corpuscular HGB Conc 33.8 g/dL (31.8-35.4); Mean Corpuscular Hemoglobin 31.2 pg (27.0-31.2); Mean Corpuscular Volume 92.3 fl (80-94); Mean Platelet Volume 9.4 fl (7.4-10.4); Monocytes # 0.4 K/mm3 (0.1-1.0); Monocytes % 6.5 % (1.7-9.3); Neutrophils # 3.1 K/mm3 (1.8-7.8); Neutrophils % 53.1 % (37.0-80.0); Platelet Count 196 K/mm3 (142-424); Red Blood Count 4.72 M/mm3 (4.60-6.20); Red Cell Distribution Width 13.1 % (11.5-17.5); White Blood Count 5.9 K/mm3 (4.8-10.8)
[2021-12-14 13:57] LABS: Amylase 38 U/L (30-110); Chol/HDL Ratio 2.7 (1-3.5); Cholesterol 93 mg/dl (140-200); HDL Cholesterol 35 mg/dl (40-60); Triglycerides 179 mg/dl (30-150); VLDL Cholesterol 36 mg/dL (0-40)
[2021-12-14 14:19] LABS: Direct LDL Cholesterol < 30.00 mg/dL (100-129)
[2021-12-14 14:29] LABS: Prostate Specific Ag Screen 0.7 ng/ml (0.0-4.0)
[2021-12-14 18:57] LABS: Hemoglobin A1C 7.3 % (4.0-6.0)
== END ==
PROVIDERS: Visit Provider Internal Medicine
DX: E11.42 Type 2 diabetes mellitus with diabetic polyneuropathy (principal); I10 Essential (primary) hypertension; K86.3 Pseudocyst of pancreas; K76.0 Fatty (change of) liver, not elsewhere classified; E78.5 Hyperlipidemia, unspecified; Z12.5 Encounter for screening for malignant neoplasm of prostate
CPT/HCPCS: 80061; 82043; 82150; 83036; 85025; G0103

== ENCOUNTER → 2021-12-20 11:46 | Outpatient (CLI) | payer MEDICARE, OTHER, SELFPAY ==
[2021-12-20 14:23] LABS: Alanine Aminotransferase 45 U/L (12-78); Albumin Level 4.2 g/dl (3.5-5.0); Albumin/Globulin Ratio 1.9 (1.1-1.8); Alkaline Phosphatase 81 U/L (38-126); Anion Gap 10.1 mEq/L (5-15); Aspartate Amino Transferase 46 U/L (17-59); Bilirubin,Total 3.3 mg/dl (0.2-1.3); Blood Urea Nitrogen 12 mg/dl (9-20); Calcium 8.9 mg/dl (8.4-10.2); Carbon Dioxide 32 mmol/L (22.0-30.0); Chloride 101 mmol/L (98-107); Estimated Glomerular Filt Rate 73 ml/min (>60); GFR (African American) 89 ML/MIN (>60); Globulin 2.2 g/dL (1.3-3.2); Glucose 242 mg/dl (74-100); Potassium 4.1 mmoL/L (3.5-5.1); Sodium 139 mmol/L (136-145); Total Protein,Serum 6.4 g/dl (6.3-8.2)
== END ==
PROVIDERS: Visit Provider Internal Medicine
DX: E11.42 Type 2 diabetes mellitus with diabetic polyneuropathy (principal); I10 Essential (primary) hypertension; E78.5 Hyperlipidemia, unspecified; K76.0 Fatty (change of) liver, not elsewhere classified; K86.3 Pseudocyst of pancreas; Z79.4 Long term (current) use of insulin
CPT/HCPCS: 80053

== ENCOUNTER → 2022-01-05 08:53 | Outpatient (CLI) | payer MEDICARE, OTHER, SELFPAY ==
--- NOTE | 2022-01-05 08:57 | US_ITS ---
FINAL REPORT CLINICAL HISTORY: ALTERED BOWEL FUNCTION, CONSTIPATION, DIARRHEA-- elev bilirubin COMPARISON: CT of the abdomen and pelvis dated November 20, 2021 FINDINGS: ULTRASOUND RIGHT UPPER QUADRANT Sonographic imaging of the right upper quadrant was obtained. There is a 7.8 x 2.5 cm fluid collection in the epigastric region that previously measured 10 x 3.6 cm. This likely represents a pseudocyst that is partially improved. The pancreas is partially obscured. The liver has increased echogenicity consistent with fatty infiltration. The gallbladder is surgically absent. There is no biliary ductal dilatation. The common duct is normal at 2 mm. Limited images of the right kidney are unremarkable. IMPRESSION: Partially improved fluid collection in the epigastric region likely represents a pseudocyst. Fatty liver. Cholecystectomy. Reviewed, Interpreted and Dictated by Ramón Corley III, MD Transcribed by Bridget Jim Authenticated by Ramón Corley III, MD on 01/05/2022 10:01:14 AM [facility]
[2022-01-05 10:28] LABS: Alanine Aminotransferase 42 U/L (12-78); Albumin Level 4.3 g/dl (3.5-5.0); Alkaline Phosphatase 73 U/L (38-126); Anion Gap 10.8 mEq/L (5-15); Aspartate Amino Transferase 34 U/L (17-59); Bilirubin,Indirect 3.4 mg/dL (0.0-0.9); Bilirubin,Total 3.4 mg/dl (0.2-1.3); Blood Urea Nitrogen 12 mg/dl (9-20); Calcium 9.2 mg/dl (8.4-10.2); Carbon Dioxide 34 mmol/L (22.0-30.0); Chloride 103 mmol/L (98-107); Estimated Glomerular Filt Rate 83 ml/min (>60); GFR (African American) 100 ML/MIN (>60); Globulin 2.2 g/dL (1.3-3.2); Glucose 126 mg/dl (74-100); Potassium 4.8 mmoL/L (3.5-5.1); Sodium 143 mmol/L (136-145); Total Protein,Serum 6.5 g/dl (6.3-8.2)
== END ==
PROVIDERS: PCP Internal Medicine; Visit Provider Nurse Practitioner Family
DX: R10.30 Lower abdominal pain, unspecified (principal); R11.2 Nausea with vomiting, unspecified; R17 Unspecified jaundice; R63.4 Abnormal weight loss; R63.0 Anorexia; R19.7 Diarrhea, unspecified; K59.00 Constipation, unspecified
CPT/HCPCS: 36415; 76705; 80053; 82248

== ENCOUNTER → 2022-01-10 10:41 | Outpatient (CLI) | payer MEDICARE, OTHER, SELFPAY | PROVIDERS: Visit Provider Nurse Practitioner Family | DX: Z01.812 Encounter for preprocedural laboratory examination (principal); Z11.52 Encounter for screening for COVID-19 | CPT/HCPCS: C9803; U0003; U0005 ==

== ENCOUNTER → 2022-06-15 09:07 | Outpatient (CLI) | payer MEDICARE, OTHER, SELFPAY ==
[2022-06-15 10:09] LABS: Hemoglobin A1C 7.7 % (4.0-6.0)
[2022-06-15 10:12] LABS: Alanine Aminotransferase 31 U/L (12-78); Albumin Level 3.9 g/dl (3.5-5.0); Albumin/Globulin Ratio 1.6 (1.1-1.8); Alkaline Phosphatase 95 U/L (38-126); Anion Gap 8.8 mEq/L (5-15); Aspartate Amino Transferase 28 U/L (17-59); Bilirubin,Total 2.4 mg/dl (0.2-1.3); Blood Urea Nitrogen 9 mg/dl (9-20); Carbon Dioxide 32 mmol/L (22.0-30.0); Chloride 106 mmol/L (98-107); Chol/HDL Ratio 3.7 (1-3.5); Cholesterol 121 mg/dl (140-200); Estimated Glomerular Filt Rate 94 ml/min (>60); GFR (African American) 114 ML/MIN (>60); Globulin 2.4 g/dL (1.3-3.2); Glucose 136 mg/dl (74-100); HDL Cholesterol 33 mg/dl (40-60); Potassium 3.8 mmoL/L (3.5-5.1); Sodium 143 mmol/L (136-145); Total Protein,Serum 6.3 g/dl (6.3-8.2); Triglycerides 312 mg/dl (30-150); VLDL Cholesterol 62 mg/dL (0-40)
[2022-06-16 08:35] LABS: Direct LDL Cholesterol 30 mg/dL (100-129)
== END ==
PROVIDERS: PCP Internal Medicine; Visit Provider Internal Medicine
DX: E11.42 Type 2 diabetes mellitus with diabetic polyneuropathy (principal); I10 Essential (primary) hypertension; E78.5 Hyperlipidemia, unspecified; Z79.4 Long term (current) use of insulin
CPT/HCPCS: 36415; 80053; 80061; 83036

== ENCOUNTER → 2022-08-22 15:26 | Outpatient (CLI) | payer MEDICARE, OTHER, SELFPAY ==
--- NOTE | 2022-08-22 | XR_ITS ---
FINAL REPORT CLINICAL HISTORY: . FINDINGS: LUMBAR SPINE Five views demonstrate no acute fracture. Mild degenerative changes are present. There is mild anterolisthesis of L4 on 5. There is a probable small left kidney stone. IMPRESSION: Degenerative changes as detailed above. Probable left kidney stone. Reviewed, Interpreted and Dictated by Ramón Corley III, MD Transcribed by Ani Mahmood Authenticated and [facility]
--- NOTE | 2022-08-22 15:42 | XR_ITS ---
FINAL REPORT CLINICAL HISTORY: L FLANK AND BACK PAIN FINDINGS: ABDOMEN SINGLE VIEW There is a nonspecific, nonobstructive bowel gas pattern. No bowel dilation is identified. There is a 6 mm presumed stone in the left kidney. There is postoperative change in the right upper quadrant. IMPRESSION: Presumed left renal stone. Reviewed, Interpreted and Dictated by Ramón Corley III, MD Transcribed by Ani Mahmood Authenticated and [facility]
== END ==
PROVIDERS: PCP Internal Medicine; Visit Provider Internal Medicine
DX: R10.9 Unspecified abdominal pain (principal); M54.50 Low back pain, unspecified
CPT/HCPCS: 72110; 74018

== ENCOUNTER → 2022-09-21 12:58 | Outpatient (POV) | payer MEDICARE, OTHER, SELFPAY ==
[2022-09-21 13:26] VITALS: BP 126/74; PULSE 70; RESP 18; O2SAT 98; BMI 22.0
--- NOTE | 2022-09-21 13:34 | EXP.PAIN.SOA ---
[facility] Pain Management SOAP Note Subjective:: Patient is a pleasant 72-year-old male who presents today for follow-up. We are currently treating the patient for degenerative disc disease of lumbar spine with lumbar radiculopathy symptoms. Today the patient rates his pain a 5 out of 10. Patient denies any new trauma or injury. Patient denies any change location or type of pain he experiences. Patient states the pain is all in his low back along the left side that radiates down his left leg to his foot. Patient states this is a aching sensation with numbness and tingling in his foot and calf. Patient states this has been going on for approximately 2+ years and often causes issues with prolonged standing or walking. Patient is very active and likes to work in his garage however this has been affected due to the aggravated pain symptoms. Patient has had injective therapy in the past that has provided significant improvement however he states the last couple of injections he got did not last as long. Patient is prescribed temazepam [address] Gallegos's office. His Kun is [id number]. It is been reviewed and appropriate. Review of Systems: General: No recent weight changes, no fever, no sleep disturbances Respiratory: No cough, no shortness of air, no recurring pulmonary infections Cardiovascular/peripheral vascular: No chest pain, no palpitations, no edema, no shortness of breath Gastrointestinal: No new onset incontinence, normal bowel movements reported Genitourinary: No new onset incontinence Musculoskeletal: Low back pain, left leg pain Psychiatric: [Normal mood/affect] Neurological: [Denies weakness in extremities], [denies balance issues] Objective:: Physical Exam: General: Alert and oriented x3, no acute distress, pleasant and cooperative Lungs: Respirations even and unlabored, symmetrical chest expansion Eyes: PERRL Musculoskeletal: Flexion and extension of lumbar [spine] somewhat guarded secondary to pain, [antalgic gait noted] Neurological: Speech clear, no gross sensory deficit Assessment:: Degenerative disc disease of lumbar spine with lumbar radiculopathy symptoms Plan:: Patient continues to experience significant pain in his low back along the left side that radiates down his left leg. I have discussed with the patient that he may benefit from a repeat lumbar epidural however at this time he would like to wait. Risk and benefits were discussed with the patient. I have counseled the patient that if he he decides he would like this lumbar epidural steroid injection at L4-L5 he can call and we will schedule it over the phone. I Will order the patient a compounding cream at today's visit. We will follow-up with the patient in 3 months for reevaluation of symptoms and follow-up. Patient has been instructed to contact the clinic with any concerns before the next appointment. Dr. Peralta has reviewed this note and agrees with this plan of care. This note was dictated using voice recognition software and make contain errors or omissions. [facility] Disclaimer: The information contained in this section may have been updated after the patient was seen, as this information can be updated by other users. Social History Smoking Status: Current every day smoker tobacco type: smokeless tobacco alcohol intake: never current occupational status: retired Travel in the last 8 weeks: None household members: spouse housing: house current occupational exposures/hazards: No caffeine: Yes
== END ==
PROVIDERS: PCP Internal Medicine; Visit Provider Nurse Practitioner Family
DX: M51.16 Intervertebral disc disorders with radiculopathy, lumbar region (principal); Z72.0 Tobacco use; Z79.899 Other long term (current) drug therapy
CPT/HCPCS: 99212; G0463

== ENCOUNTER 2022-11-10 09:51 | Day surgery (SDC) | payer MEDICARE, SELFPAY ==
[2022-11-06 13:30] VITALS: BMI 22.4
[2022-11-10] VITALS (8 sets, daily range): BP systolic 94–146; BP diastolic 47–74; PULSE 66–93; RESP 16–18; TEMP 36.2–36.7; O2SAT 92–98
[2022-11-10 10:23] LABS: POC Glucose,Bedside 176 (70-110)
--- NOTE | 2022-11-10 10:48 | EXP.ANES.CKL ---
[facility] Disclaimer: The information contained in this section may have been updated after the patient was seen, as this information can be updated by other users. Medical History Diabetes mellitus, type 2 Hyperlipidemia Hypertension Surgical History History of cholecystectomy History of colonoscopy Family History Other No significant family history Social History Smoking Status: Former smoker alcohol intake: never substance use type: denies use current occupational status: retired Travel in the last 8 weeks: None household members: spouse housing: house current occupational exposures/hazards: No caffeine: Yes [facility] Anesthesia Checklist Patient Identification Patient Identification: Arm Band and Verbal (Name & ) Structural Data Admitted From: Home Planned Operative Procedure/s: Colonoscopy Consent for Planned Operative Procedure(s) Verified: Yes NPO Status Verified Time NPO: 00:00 Additional verifications Anesthesia Reactions: No Hx Blood Transfusions: No Blood Transfusion Reaction: No Airway Assessment C-Spine Mobility Assessed: Yes TMJ Mobility Assessed: Yes Dentition: Poor Dentition Neurological Assessment Level of Consciousness: Awake Hx Seizures: No Numbness or tingling in extremities: No Anesthesia Plan Anesthesia Risk discussed: Yes Anesthesia Plan: Verified ASA Class: III Anesthesia Type: MAC
--- NOTE | 2022-11-10 11:20 | HMH.SCOPE ---
Procedure: Date: 11/10/22 Patient Date of :: 1950 Procedure Performed:: Total colonoscopy to terminal ileum with polypectomy Indications:: Patient is a 72-year-old male whom I had seen in the past. I performed colonoscopy in 2009 and had tentatively recommended a follow-up colonoscopy in about 5 years. Of note, the patient does have a prior history of biliary pancreatitis and I had performed laparoscopic cholecystectomy with intraoperative cholangiogram in 2013. 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 He was set up for screening colonoscopy. He does state that he has had some occasional transient left lower quadrant pain. Performing Provider:: Ramón Jones MD Referring Provider:: Elian Gallegos MD Sedation:: MAC sedation Procedure:: Patient history was obtained and appropriate physical examination was performed. Patient's medications and allergies were reviewed. Informed consent was obtained after explaining the benefits, alternatives, and risks of the procedure including, but not limited to, bleeding, perforation, missed lesions, and adverse reaction to anesthesia medications. Patient was transported to endoscopy procedure room. Patient was connected to monitoring devices. Throughout the procedure the patient's blood pressure, pulse, and oxygen saturations were monitored continuously. Patient identification and planned procedure were verified by the staff. Patient was positioned in lateral decubitus position. Digital anorectal exam was performed. Variable stiffness Olympus colonoscope was inserted and advanced under direct visualization to the cecum. Adequacy of the colonic preparation was noted. The colonoscope was advanced a short distance into the terminal ileum. The colonoscope was then slowly withdrawn while carefully examining the color, texture, anatomy, and integrity of the mucosoa circumferentially. Within the rectum retroflexion was performed. Colonoscope was then withdrawn. Findings:: Colonic preparation was good. He had some minor mucosal prominence at the hepatic flexure which was quite subtle and likely inconsequential. Biopsy was obtained. The distal sigmoid colon there was a sessile possible adenomatous polyp removed in its entirety with cold snare. In the rectum there were a couple of diminutive polyps removed with biopsy forceps. Impression: Polyps as noted above Minor mucosal prominence at hepatic flexure, biopsied Recommendations:: Follow-up colonoscopy pending the results of the polyps. If the biopsy of the hepatic flexure is adenomatous he may require repeat colonoscopy and as early as 6 to 12 months. However, most likely repeat colonoscopy in 3 to 5 years. Complications:: None immediately apparent Estimated blood obtained (mL): 1
== END 2022-11-10 12:25 | disposition home or self-care (01) ==
PROVIDERS: PCP Internal Medicine; Visit Provider Surgery
PROC: 0DJD8ZZ Inspection of Lower Intestinal Tract, Via Natural or Artificial Opening Endoscopic (ICD-10-PCS; principal; 2022-11-10 11:00)
DX: Z12.11 Encounter for screening for malignant neoplasm of colon (principal); D12.5 Benign neoplasm of sigmoid colon; Z86.010 Personal history of colon polyps; F17.210 Nicotine dependence, cigarettes, uncomplicated; Z79.899 Other long term (current) drug therapy; E11.9 Type 2 diabetes mellitus without complications
CPT/HCPCS: 45380; 45385; 82962; J2704

== ENCOUNTER → 2022-12-22 16:34 | Outpatient (CLI) | payer MEDICARE, SELFPAY ==
[2022-12-22 17:33] LABS: Basophils # 0.1 K/mm3 (0-0.2); Basophils % 1.1 % (0.1-2.0); Eosinophils # 0.4 K/mm3 (0.0-0.4); Eosinophils % 6.5 % (0.1-12.0); Hemoglobin 14.7 g/dL (14.1-18.0); Lymphocytes # 1.9 K/mm3 (0.7-4.5); Lymphocytes % 35.4 % (10-50); Mean Corpuscular HGB Conc 32.6 g/dL (31.8-35.4); Mean Corpuscular Hemoglobin 30.1 pg (27.0-31.2); Mean Corpuscular Volume 92.2 fl (80-94); Mean Platelet Volume 8.1 fl (7.4-10.4); Monocytes # 0.4 K/mm3 (0.1-1.0); Monocytes % 6.3 % (1.7-9.3); Neutrophils # 2.8 K/mm3 (1.8-7.8); Neutrophils % 50.7 % (37.0-80.0); Platelet Count 213 K/mm3 (142-424); Red Blood Count 4.88 M/mm3 (4.60-6.20); Red Cell Distribution Width 12.7 % (11.5-17.5); White Blood Count 5.5 K/mm3 (4.8-10.8)
[2022-12-22 18:25] LABS: Creatinine,Urine Random 53 mg/dL (Not Estab.)
[2022-12-22 18:46] LABS: Microalbumin < 6.000 mg/L (0-16.7)
[2022-12-22 19:26] LABS: Hemoglobin A1C 6.7 % (4.0-6.0)
[2022-12-22 19:40] LABS: Chloride 101 mmol/L (98-107); Potassium 4.5 mmoL/L (3.5-5.1); Sodium 140 mmol/L (136-145)
[2022-12-22 19:43] LABS: Alanine Aminotransferase 25 U/L (12-78); Albumin/Globulin Ratio 1.6 (1.1-1.8); Alkaline Phosphatase 78 U/L (38-126); Anion Gap 10.5 mEq/L (5-15); Aspartate Amino Transferase 26 U/L (17-59); Bilirubin,Total 2.9 mg/dl (0.2-1.3); Blood Urea Nitrogen 15 mg/dl (9-20); Calcium 8.7 mg/dl (8.4-10.2); Carbon Dioxide 33 mmol/L (22.0-30.0); Chol/HDL Ratio 2.5 (1-3.5); Cholesterol 90 mg/dl (140-200); Estimated Glomerular Filt Rate 73 ml/min (>60); GFR (African American) 88 ML/MIN (>60); Globulin 2.5 g/dL (1.3-3.2); Glucose 147 mg/dl (74-100); HDL Cholesterol 36 mg/dl (40-60); Total Protein,Serum 6.5 g/dl (6.3-8.2); Triglycerides 160 mg/dl (30-150); VLDL Cholesterol 32 mg/dL (0-40)
[2022-12-22 19:54] LABS: Direct LDL Cholesterol 35.94 mg/dL (100-129)
== END ==
PROVIDERS: PCP Internal Medicine; Visit Provider Internal Medicine
DX: E11.42 Type 2 diabetes mellitus with diabetic polyneuropathy (principal); E78.5 Hyperlipidemia, unspecified; I10 Essential (primary) hypertension; K76.0 Fatty (change of) liver, not elsewhere classified; K86.3 Pseudocyst of pancreas; Z79.4 Long term (current) use of insulin
CPT/HCPCS: 80053; 80061; 82043; 82570; 83036; 85025

== ENCOUNTER → 2023-06-27 13:09 | Outpatient (CLI) | payer MEDICARE, SELFPAY ==
[2023-06-27 15:23] LABS: Chloride 103 mmol/L (98-107); Potassium 4.1 mmoL/L (3.5-5.1); Sodium 143 mmol/L (136-145)
[2023-06-27 15:26] LABS: Alanine Aminotransferase 24 U/L (12-78); Albumin Level 3.9 g/dl (3.5-5.0); Albumin/Globulin Ratio 1.5 (1.1-1.8); Alkaline Phosphatase 117 U/L (38-126); Anion Gap 12.1 mEq/L (5-15); Aspartate Amino Transferase 25 U/L (17-59); Bilirubin,Total 2.7 mg/dl (0.2-1.3); Blood Urea Nitrogen 11 mg/dl (9-20); Calcium 9.1 mg/dl (8.4-10.2); Carbon Dioxide 32 mmol/L (22.0-30.0); Chol/HDL Ratio 3.8 (1-3.5); Cholesterol 120 mg/dl (140-200); Estimated Glomerular Filt Rate 73 ml/min (>60); GFR (African American) 88 ML/MIN (>60); Globulin 2.6 g/dL (1.3-3.2); Glucose 106 mg/dl (74-100); HDL Cholesterol 32 mg/dl (40-60); Total Protein,Serum 6.5 g/dl (6.3-8.2); Triglycerides 294 mg/dl (30-150); VLDL Cholesterol 59 mg/dL (0-40)
[2023-06-27 15:34] LABS: Hemoglobin A1C 7.2 % (4.0-6.0)
[2023-06-27 15:37] LABS: Direct LDL Cholesterol 37.64 mg/dL (100-129)
[2023-06-27 16:32] LABS: Prostate Specific Ag Screen 0.7 ng/ml (0.0-4.0)
== END ==
PROVIDERS: PCP Internal Medicine; Visit Provider Internal Medicine
DX: E11.42 Type 2 diabetes mellitus with diabetic polyneuropathy (principal); Z12.5 Encounter for screening for malignant neoplasm of prostate; Z79.4 Long term (current) use of insulin
CPT/HCPCS: 80053; 80061; 83036; G0103

== ENCOUNTER 2024-01-01 10:32 | Outpatient (CLI) | payer MEDICARE, SELFPAY ==
--- NOTE | 2024-01-01 10:40 | CT_ITS ---
FINAL REPORT CLINICAL HISTORY: STROKE PROTOCOL ataxia COMPARISON: November 20, 2021 FINDINGS: Axial images of the head were obtained without contrast. Coronal reformatted images were also obtained. This study was performed with techniques to keep radiation doses as low as reasonably achievable (ALARA). Individualized dose reduction techniques using automated exposure control or adjustment of mA and/or kV according to the patient''s size were employed. There is generalized age-appropriate atrophy. Periventricular low-attenuation areas are seen consistent with mild chronic ischemic changes. There is no evidence of intracranial hemorrhage or mass. There is no evidence of acute infarct. There is no evidence of shift of the midline structures. No skull abnormality is seen on the bone window images. IMPRESSION: Atrophy and mild periventricular chronic ischemic changes. No acute intracranial abnormality identified. Authenticated and [facility]
[2024-01-01 15:21] LABS: Basophils # 0.1 K/mm3 (0-0.2); Basophils % 0.9 % (0.1-2.0); Eosinophils # 0.3 K/mm3 (0.0-0.4); Eosinophils % 3.9 % (0.1-12.0); Hematocrit 47.3 % (42.0-52.0); Hemoglobin 15.5 g/dL (14.1-18.0); Lymphocytes # 1.6 K/mm3 (0.7-4.5); Lymphocytes % 24.6 % (10-50); Mean Corpuscular HGB Conc 32.8 g/dL (31.8-35.4); Mean Corpuscular Hemoglobin 32.1 pg (27.0-31.2); Mean Corpuscular Volume 97.7 fl (80-94); Mean Platelet Volume 8.9 fl (7.4-10.4); Monocytes # 0.4 K/mm3 (0.1-1.0); Monocytes % 6.6 % (1.7-9.3); Neutrophils # 4.1 K/mm3 (1.8-7.8); Neutrophils % 63.9 % (37.0-80.0); Platelet Count 195 K/mm3 (142-424); Red Blood Count 4.84 M/mm3 (4.60-6.20); White Blood Count 6.5 K/mm3 (4.8-10.8)
[2024-01-01 15:33] LABS: Alanine Aminotransferase 36 U/L (12-78); Albumin Level 4.5 g/dl (3.5-5.0); Alkaline Phosphatase 106 U/L (38-126); Anion Gap 11.9 mEq/L (5-15); Aspartate Amino Transferase 31 U/L (17-59); Bilirubin,Total 2.6 mg/dl (0.2-1.3); Blood Urea Nitrogen 14 mg/dl (9-20); Carbon Dioxide 31 mmol/L (22.0-30.0); Chloride 104 mmol/L (98-107); Chol/HDL Ratio 4.2 (1-3.5); Cholesterol 123 mg/dl (140-200); Estimated Glomerular Filt Rate 73 ml/min (>60); GFR (African American) 88 ML/MIN (>60); Globulin 2.3 g/dL (1.3-3.2); Glucose 85 mg/dl (74-100); HDL Cholesterol 29 mg/dl (40-60); Potassium 3.9 mmoL/L (3.5-5.1); Sodium 143 mmol/L (136-145); Total Protein,Serum 6.8 g/dl (6.3-8.2); Triglycerides 331 mg/dl (30-150); VLDL Cholesterol 66 mg/dL (0-40)
[2024-01-01 15:43] LABS: Direct LDL Cholesterol 50.56 mg/dL (100-129)
[2024-01-01 16:04] LABS: Hemoglobin A1C 7.6 % (4.0-6.0)
[2024-01-01 16:21] LABS: Vitamin B12 907 pg/mL (239-931)
[2024-01-01 16:51] LABS: Creatinine,Urine Random 153 mg/dL (Not Estab.)
[2024-01-01 16:52] LABS: Microalbumin/Creatinine Ratio 10.7
== END 2024-01-01 23:59 ==
PROVIDERS: PCP Internal Medicine; Visit Provider Internal Medicine
DX: E11.42 Type 2 diabetes mellitus with diabetic polyneuropathy (principal); R27.0 Ataxia, unspecified; I63.9 Cerebral infarction, unspecified; Z79.899 Other long term (current) drug therapy
CPT/HCPCS: 70450; 80053; 80061; 82043; 82570; 82607; 83036; 85025

== ENCOUNTER 2024-01-04 13:52 | Outpatient (CLI) | payer MEDICARE, SELFPAY ==
--- NOTE | 2024-01-04 | CA_ITS ---
FINAL REPORT TECHNIQUE: Color Doppler, duplex Doppler and tidwell scale sonography of the bilateral neck arterial vasculature was performed. Velocities were measured in the carotid arteries. Stenosis evaluation based on the validated velocity criteria. CLINICAL HISTORY: HTN, DM, dizziness COMPARISON: None FINDINGS: The peak systolic velocity of the right common carotid artery is 94 cm/s. The peak systolic velocity of the right internal carotid artery is 60 cm/s and end diastolic velocity 18 cm/s. The ICA/CCA ratio is 1.0. No significant plaque is present. The right external carotid artery is patent. The right vertebral artery is patent with antegrade flow. The peak systolic velocity of the left common carotid artery is 104 cm/s. The peak systolic velocity of the left internal carotid artery is 75 cm/s and end diastolic velocity 26 cm/s. The ICA/CCA ratio is 1.1. No significant plaque is present. The left external carotid artery is patent.The left vertebral artery is patent with antegrade flow. IMPRESSION: No evidence of carotid stenosis bilaterally. Bilateral patent vertebral arteries with antegrade flow. If indicated, CTA or MRA could further evaluate. Reviewed, Interpreted and Dictated by Ramón Corley III, MD Transcribed by Tess Kurtz Authenticated and [facility]
== END 2024-01-04 23:59 ==
LOC: RT 13:53
PROVIDERS: PCP Internal Medicine; Visit Provider Internal Medicine
DX: R27.0 Ataxia, unspecified (principal)
CPT/HCPCS: 93880

== ENCOUNTER 2024-06-11 14:05 | Outpatient (CLI) | payer MEDICARE, SELFPAY ==
[2024-06-11 17:30] LABS: Hemoglobin A1C 7.1 % (4.0-6.0)
[2024-06-11 19:25] LABS: Alanine Aminotransferase 26 U/L (12-78); Albumin Level 4.2 g/dl (3.5-5.0); Albumin/Globulin Ratio 1.6 (1.1-1.8); Anion Gap 6.5 mEq/L (5-15); Aspartate Amino Transferase 30 U/L (17-59); Bilirubin,Total 2.3 mg/dl (0.2-1.3); Blood Urea Nitrogen 14 mg/dl (9-20); Calcium 8.9 mg/dl (8.4-10.2); Carbon Dioxide 34 mmol/L (22.0-30.0); Chloride 105 mmol/L (98-107); Estimated Glomerular Filt Rate 65 ml/min (>60); GFR (African American) 79 ML/MIN (>60); Globulin 2.6 g/dL (1.3-3.2); Glucose 140 mg/dl (74-100); Potassium 4.5 mmoL/L (3.5-5.1); Sodium 141 mmol/L (136-145); Total Protein,Serum 6.8 g/dl (6.3-8.2); Triglycerides 386 mg/dl (30-150); VLDL Cholesterol 77 mg/dL (0-40)
[2024-06-11 19:26] LABS: Alkaline Phosphatase 93 U/L (38-126); Chol/HDL Ratio 4.3 (1-3.5); Cholesterol 154 mg/dl (140-200); HDL Cholesterol 36 mg/dl (40-60)
[2024-06-11 19:42] LABS: Direct LDL Cholesterol < 60.00 mg/dL (100-129)
== END 2024-06-11 23:59 | disposition home or self-care (01) ==
LOC: LAB.DROPOF 06-12 14:06
PROVIDERS: PCP Internal Medicine; Visit Provider Internal Medicine
DX: E11.42 Type 2 diabetes mellitus with diabetic polyneuropathy (principal); I10 Essential (primary) hypertension; E78.5 Hyperlipidemia, unspecified
CPT/HCPCS: 80053; 80061; 83036

== ENCOUNTER 2024-12-09 17:02 | Outpatient (CLI) | payer MEDICARE, SELFPAY ==
[2024-12-09 17:11] LABS: Basophils # 0.1 K/mm3 (0-0.2); Basophils % 0.8 % (0.1-2.0); Eosinophils # 0.2 K/mm3 (0.0-0.4); Eosinophils % 2.8 % (0.1-12.0); Hematocrit 43.9 % (42.0-52.0); Hemoglobin 14.7 g/dL (14.1-18.0); Lymphocytes # 1.5 K/mm3 (0.7-4.5); Lymphocytes % 20.2 % (10-50); Mean Corpuscular HGB Conc 33.5 g/dL (31.8-35.4); Mean Corpuscular Hemoglobin 30.3 pg (27.0-31.2); Mean Corpuscular Volume 90.5 fl (80-94); Monocytes # 0.4 K/mm3 (0.1-1.0); Monocytes % 5.7 % (1.7-9.3); Neutrophils # 5.3 K/mm3 (1.8-7.8); Neutrophils % 70.2 % (37.0-80.0); Platelet Count 233 K/mm3 (142-424); Red Blood Count 4.85 M/mm3 (4.60-6.20); Red Cell Distribution Width 12.4 % (11.5-17.5); White Blood Count 7.6 K/mm3 (4.8-10.8)
[2024-12-09 17:52] LABS: Creatinine,Urine Random 214 mg/dL (Not Estab.)
[2024-12-09 17:55] LABS: Microalbumin/Creatinine Ratio 13.7
[2024-12-09 19:56] LABS: Hemoglobin A1C 6.9 % (4.0-6.0)
[2024-12-09 22:14] LABS: Alanine Aminotransferase 35 U/L (12-78); Albumin Level 4.2 g/dl (3.5-5.0); Albumin/Globulin Ratio 1.8 (1.1-1.8); Alkaline Phosphatase 67 U/L (38-126); Anion Gap 7.1 mEq/L (5-15); Aspartate Amino Transferase 37 U/L (17-59); Bilirubin,Total 1.3 mg/dl (0.2-1.3); Blood Urea Nitrogen 11 mg/dl (9-20); Calcium 9.1 mg/dl (8.4-10.2); Carbon Dioxide 30 mmol/L (22.0-30.0); Chloride 105 mmol/L (98-107); Chol/HDL Ratio 3.5 (1-3.5); Cholesterol 131 mg/dl (140-200); Estimated Glomerular Filt Rate 73 ml/min (>60); GFR (African American) 88 ML/MIN (>60); Globulin 2.3 g/dL (1.3-3.2); Glucose 134 mg/dl (74-100); HDL Cholesterol 37 mg/dl (40-60); Potassium 4.1 mmoL/L (3.5-5.1); Sodium 138 mmol/L (136-145); Total Protein,Serum 6.5 g/dl (6.3-8.2); Triglycerides 150 mg/dl (30-150); VLDL Cholesterol 30 mg/dL (0-40)
[2024-12-09 22:44] LABS: Prostate Specific Ag Screen 0.7 ng/ml (0.0-4.0)
[2024-12-09 23:03] LABS: Vitamin B12 393 pg/mL (239-931)
== END 2024-12-09 23:59 | disposition home or self-care (01) ==
LOC: LAB.DROPOF 17:03
PROVIDERS: PCP Internal Medicine; Visit Provider Internal Medicine
DX: E11.42 Type 2 diabetes mellitus with diabetic polyneuropathy (principal); I10 Essential (primary) hypertension; E78.5 Hyperlipidemia, unspecified; R27.0 Ataxia, unspecified; Z12.5 Encounter for screening for malignant neoplasm of prostate
CPT/HCPCS: 80053; 80061; 82043; 82570; 82607; 83036; 85025; G0103

== ENCOUNTER 2025-01-08 12:24 | Outpatient (CLI) | payer MEDICARE, SELFPAY ==
--- NOTE | 2025-01-08 13:00 | CA_ITS ---
APPROVED REPORT EXAM: Comprehensive 2D, Doppler, and color-flow Echocardiogram Disability Manager: Asiya Kennedy RDCS Ht: 6 ft 1 in Wt: 174lbs BSA: 2.03 BP: 128/80 mmHg Indications: CP,DIZZINESS,DM,HTN,HLP,SMOKER M-Mode Dimensions RVDd 2.02 cm (0.9-2.6) LA Diam 3.16 cm (1.9-4.0) LVDd 5.06 cm (3.5-5.7) LVDs 3.46 cm (3.5-5.7) IVSd 0.80 cm (0.6-1.1) PWd 0.58 cm (0.6-1.1) EF (Teich) 59.30% FS 31.60% EDV (Teich) 121.60 mL TAPSE 1.58 (<1.7) ESV (Teich) 49.50 mL LV Diastology E Decel Time 217 (160-240 msec) E/A Ratio 1.1 Mitral Valve MV E Max Chester. 75.0 (40-130 cm/s) MV A Velocity 66.0 (40-130 cm/s) E/A Ratio 1.13 MV PHT 63.0 ms Tricuspid Valve TR P. Velocity 254.00 cm/s RAP Estimate 10.00 mmHg RVSP 35.90 mmHg Left Ventricle The left ventricle is normal size. The left ventricular systolic function is normal. The left ventricular ejection fraction is within the normal range. Proximal septal thickening is noted. There is normal LV segmental wall motion. The left ventricular diastolic function is normal. LVEF is 55%. Right Ventricle The right ventricle is normal size. The right ventricular systolic function is normal. Atria The left atrium is mildly dilated. The right atrium is mildly dilated. There is no Doppler evidence of interatrial shunt. Aortic Valve The aortic valve is mildly thickened. There is no aortic valvular stenosis. Trace aortic regurgitation. Mitral Valve The mitral valve is normal in structure. No evidence of mitral valve stenosis. Mild mitral regurgitation. Tricuspid Valve Tricuspid valve is grossly normal in structure and function. Mild tricuspid regurgitation. RVSP is 25-30 mmHg. Pulmonic Valve The pulmonary valve is normal in structure. Trace pulmonic regurgitation. Great Vessels The aortic root is normal in size. IVC is normal in size and collapses >50% with inspiration. Pericardium There is no pericardial effusion. Other Information Study Quality: Fair Conclusion Normal biventricular systolic function. Mild biatrial dilation. Mild MR, mild TR. Electronically signed by : Dannielle Alvarez MD 01/20/2025 21:11:25
--- NOTE | 2025-01-08 13:00 | US_ITS ---
FINAL REPORT CLINICAL HISTORY: claudication DM FINDINGS: LOWER EXTREMITY SEGMENTAL PRESSURE MEASUREMENTS FINDINGS: Pressure indices are as follows: RIGHT LOWER EXTREMITY: Thigh: 1.10 Calf: 1.25 Ankle, posterior tibial artery: 1.04 Ankle, dorsalis pedis: 1.23 Toe: 1.03 KATHLEEN: 1.23 Comments: Within normal limits LEFT LOWER EXTREMITY: Thigh: 1.12 Calf: 1.23 Ankle, posterior tibial artery: 1.18 Ankle, dorsalis pedis: 1.42 Toe: 0.96 KATHLEEN: 1.42 Comments: Within normal limits IMPRESSION: No evidence of peripheral vascular disease in the bilateral lower extremities. Reviewed, Interpreted and Dictated by Levi Henderson MD Transcribed by Tess Kurtz Authenticated and [facility]
== END 2025-01-08 23:59 | disposition home or self-care (01) ==
LOC: RT 12:25
PROVIDERS: PCP Internal Medicine; Visit Provider Nurse Practitioner
DX: I51.7 Cardiomegaly (principal); I34.0 Nonrheumatic mitral (valve) insufficiency; I36.1 Nonrheumatic tricuspid (valve) insufficiency; I73.9 Peripheral vascular disease, unspecified; R42 Dizziness and giddiness; E78.49 Other hyperlipidemia
CPT/HCPCS: 93306; 93923

== ENCOUNTER 2025-01-13 11:11 | Outpatient (CLI) | payer MEDICARE, SELFPAY ==
--- NOTE | 2025-01-13 | CA_ITS ---
APPROVED REPORT Exam: Pharmacologic Technologist: Negar Ruggiero Ht: 6 ft 1 in Wt: 174 lbs BSA: 2.03 m2 HR: 56 bpm BP: 144/79 mmHg Stress Test Details Test: Lexiscan HR Resting HR: 56 bpm Max Heart Rate (APMHR): 144.287678 bpm Max HR Achieved: 80 bpm Target HR (85% APMHR): 122.130893 bpm % of APMHR: 55.56 Recovery HR: 70 bpm BP Resting BP: 144.0/79.0 mmHg Max BP: 153.0/80.0 mmHg Recovery BP: 136.0/76.0 mmHg ECG Resting ECG: Normal sinus rhythm Stress ECG Conclusion Symptoms: Chest pressure, headache Arrhythmias/Ectopy: - ST-T Changes: Less than [address] depression Conclusion: EKG unremarkable due to Lexiscan infusion. Electronically signed by : Dannielle Alvarez MD 01/15/2025 12:03:13
--- NOTE | 2025-01-13 11:11 | NM_ITS ---
APPROVED REPORT Exam: Nuclear Stress Test Indication: Chest pain, Dizziness, HTN, DM, High cholesterol, Tobacco use Patient Location: Outpatient Stress Tech: Negar Ruggiero NM Tech:Ruby Ring, ARRT, RT (R)(N) Ht: 6 ft 1 in Wt: 170 lbs HR: 55 bpm BP: 144/79 mmHg BSA: 2.01 m2 TID: 1.20 BMI: 22.4 History: Chest pain, Dizziness, HTN, DM, High cholesterol, Tobacco use Procedure: Patient received 0.4 mg of intravenous Lexiscan, resting heart rate 55 bpm, resting blood pressure 144/79 mmHg, with Lexiscan maximum heart rate achieved was 81 bpm which is % of the maximum predicted heart rate and blood pressure was 153/80 mmHg. With Lexiscan, patient denied any complaint of chest pain. Cardiac Stress and Resting SPECT Images: Cardiac Stress and Resting SPECT images were obtained using technetium 99m Myoview 32.3 mCi stress and 10.31 mCi at rest. Resting and stress imaging in supine and prone imaging demonstrate a medium sized, moderate, reversible perfusion defect in the distal and apical LV ortega. There is borderline increase in transient ischemic dilatation ratio (TID 1.20), suggestive of possible multivessel disease or balanced ischemia. Gated imaging demonstrates normal global LV systolic function. LVEF is calculated at 55%. Conclusion: Medium sized, moderate, reversible perfusion defect in the distal and apical LV ortega. Findings are suggestive of reversible ischemia. There is borderline increase in transient ischemic dilatation ratio (TID 1.20), suggestive of possible multivessel disease or balanced ischemia. Gated imaging demonstrates normal global LV systolic function. LVEF is calculated at 55%. Electronically signed by : Dannielle Alvarez MD 01/15/2025 12:11:48
[2025-01-13] MEDS: SODIUM CHLORIDE 0.9% 10ML SYR (RAD ONLY) 10 ML IV ×2 (13:03)
[2025-01-13] MEDS: REGADENOSON 0.4MG/5ML SYRINGE 0.4 MG IV (13:03)
[2025-01-13] MEDS: ISOTOPE MYOVIEW (PER STUDY) 1 DOSE IV (13:03)
== END 2025-01-13 23:59 | disposition home or self-care (01) ==
LOC: RAD 11:11
PROVIDERS: PCP Internal Medicine; Visit Provider Nurse Practitioner
DX: I20.89 Other forms of angina pectoris (principal); I73.9 Peripheral vascular disease, unspecified; R42 Dizziness and giddiness; E78.49 Other hyperlipidemia; I10 Essential (primary) hypertension
CPT/HCPCS: 78452; 93017; 93018; A9502; J2785

== ENCOUNTER 2025-01-27 08:36 | Day surgery (SDC) | payer MEDICARE, SELFPAY ==
[2025-01-27] VITALS (14 sets, daily range): BP systolic 121–186; BP diastolic 63–100; PULSE 58–67; RESP 16–18; TEMP 36.9; O2SAT 93–98; BMI 22.0
--- NOTE | 2025-01-27 07:07 | IR_ITS ---
APPROVED REPORT Patient Location: Outpatient Sales Agent [employer] Insurance: Krystian Barraza, RT (R) PROCEDURES Left heart catheterization Left ventriculogram Selective coronary angiogram Drug-eluting stent deployment to the proximal LAD INDICATION Coronary artery disease, Angina pectoris, Abnormal Myoview Informed consent was obtained prior to the procedure. COMPLICATIONS NONE Estimated Blood Loss: LESS THAN 10 ML TECHNIQUE One percent lidocaine used to anesthetize the right anterior aspect of the wrist. The right radial artery was accessed via the Seldinger technique. A 6 [place] sheath was placed in the right radial artery. 2.5 mg of Verapamil, 800 mcg of nitroglycerin, 1mg Lidocaine and 5000 U Heparin were given through the arterial sheath. The 6 [place] JL 3 guide catheter catheter was also used to perform left heart catheterization, left ventriculogram and selective coronary angiogram. At the end the diagnostic angiogram therapeutic heparin was administered giving a therapeutic ACT and the guide catheter was placed in left main artery followed by Choice PT extra-support wire placed distally in the LAD. 3.5 x 26 mm Celso frontier stent was deployed at 15 ashley reducing the critical stenosis to 0%. LUKAS II flow was present at the beginning of the procedure with LUKAS-3 flow at the end of the procedure. Then the procedure the apparatus was removed the sheath was removed and hemostasis was achieved using TR banding patient was transferred to the postop putting in stable condition ANGIOGRAPHIC RESULTS The left main artery Normal The left anterior descending artery Gives rise to a small to medium sized first diagonal artery and then followed by a critical greater than 90% stenosis adjacent to the first septal referral specialist and involving 2 additional septal perforators. LUKAS II flow was initially present The circumflex artery Nondominant with mild 10% luminal regularities The right coronary artery Massively large dominant with mid vessel 10 to 20% stenosis followed by an additional concentric 30% stenosis The IRBY ventriculogram reveals Not performed The left ventricular end-diastolic pressure Not measured IMPRESSION Protocol proximal LAD disease as described above Successful stenting of proximal LAD critical disease reduced to 0% with 1 drug-eluting stent PLAN 1. Plavix and aspirin 2. LDL less than 55 to be achieved with high intensity statin 3. Avoidance of tobacco products 4. Risk factor modification 5. Cardiac rehabilitation Electronically signed by : Micheal Dent MD 01/27/2025 11:55:31
[2025-01-27 09:08] LABS: Basophils # 0.1 K/mm3 (0-0.2); Basophils % 0.8 % (0.1-2.0); Eosinophils # 0.4 K/mm3 (0.0-0.4); Eosinophils % 6.6 % (0.1-12.0); Hematocrit 44.4 % (42.0-52.0); Hemoglobin 15.4 g/dL (14.1-18.0); Lymphocytes # 2.1 K/mm3 (0.7-4.5); Lymphocytes % 34.1 % (10-50); Mean Corpuscular HGB Conc 34.7 g/dL (31.8-35.4); Mean Corpuscular Hemoglobin 30.5 pg (27.0-31.2); Mean Corpuscular Volume 87.9 fl (80-94); Mean Platelet Volume 9.7 fl (7.4-10.4); Monocytes # 0.5 K/mm3 (0.1-1.0); Monocytes % 8.3 % (1.7-9.3); Neutrophils # 3.1 K/mm3 (1.8-7.8); Platelet Count 216 K/mm3 (142-424); Red Blood Count 5.05 M/mm3 (4.60-6.20); White Blood Count 6.2 K/mm3 (4.8-10.8)
[2025-01-27 09:17] LABS: Chloride 103 mmol/L (98-107); Potassium 3.8 mmoL/L (3.5-5.1); Sodium 141 mmol/L (136-145)
[2025-01-27 09:20] LABS: Blood Urea Nitrogen 10 mg/dl (9-20); Creatinine Clearance Estimated 66 mL/min (50-200); Estimated Glomerular Filt Rate 72 ml/min (>60); GFR (African American) 88 ML/MIN (>60)
[2025-01-27 09:21] LABS: Anion Gap 8.8 mEq/L (5-15); Calcium 9.3 mg/dl (8.4-10.2); Carbon Dioxide 33 mmol/L (22.0-30.0); Glucose 133 mg/dl (74-100)
[2025-01-27] MEDS: LIDOCAINE 1% 10ML MDV 20 ML IJ (11:19)
[2025-01-27] MEDS: VERAPAMIL 2.5MG/ML 2ML VIAL 2.5 MG IV (11:19)
[2025-01-27] MEDS: HEPARIN 1,000 UNITS/ML 10ML VIAL (CATH LAB) 10000 UNIT IV (11:19)
[2025-01-27] MEDS: diphenhydrAMINE 50MG/ML VIAL 50 MG IV (11:19)
[2025-01-27] MEDS: 0.9 % SODIUM CHLORIDE 500 ML 25 ML IV (11:20)
[2025-01-27] MEDS: HEPARIN 1,000 UNITS/500ML NS (CATH LAB) 3000 UNIT IV (11:20)
[2025-01-27] MEDS: NITROGLYCERIN 800MCG/8ML SYR (CATH LAB) 800 MCG IA (11:20)
[2025-01-27] MEDS: FENTANYL 100MCG/2ML VIAL 50 MCG IV (11:52)
[2025-01-27] MEDS: MIDAZOLAM HCL 1MG/ML 5ML VIAL 1 MG IV (11:52)
[2025-01-27] MEDS: CLOPIDOGREL 300MG TABLET 600 MG PO (12:02)
[2025-01-27] MEDS: IOPAMIDOL-370 (76%);100ML BOTTLE 90 ML IV (13:46)
[2025-01-27 13:48] LABS: CATHL Activated Clotting Time 337 SEC (74-125)
== END 2025-01-27 15:01 | disposition home or self-care (01) ==
LOC: CATHLAB 08:38
PROVIDERS: PCP Internal Medicine; Visit Provider Internal Medicine
DX: I25.118 Atherosclerotic heart disease of native coronary artery with other forms of angina pectoris (principal); R94.39 Abnormal result of other cardiovascular function study; Z95.5 Presence of coronary angioplasty implant and graft; I10 Essential (primary) hypertension; E11.42 Type 2 diabetes mellitus with diabetic polyneuropathy; Z79.84 Long term (current) use of oral hypoglycemic drugs; Z79.899 Other long term (current) drug therapy; F17.290 Nicotine dependence, other tobacco product, uncomplicated; I70.209 Unspecified atherosclerosis of native arteries of extremities, unspecified extremity; I77.1 Stricture of artery
CPT/HCPCS: 80048; 85025; 85347; 92928; 93458; 99152; 99153; C1725; C1769; C1874; C9600; J1200; J1644; J3010; Q9967

== ENCOUNTER 2025-01-29 09:44 | Outpatient (CLI) | payer MEDICARE, SELFPAY ==
[2025-01-29 10:04] LABS: Basophils # 0.1 K/mm3 (0-0.2); Basophils % 1.1 % (0.1-2.0); Eosinophils # 0.3 K/mm3 (0.0-0.4); Eosinophils % 4.9 % (0.1-12.0); Hematocrit 45.3 % (42.0-52.0); Hemoglobin 15.2 g/dL (14.1-18.0); Lymphocytes # 2.2 K/mm3 (0.7-4.5); Lymphocytes % 39.1 % (10-50); Mean Corpuscular HGB Conc 33.6 g/dL (31.8-35.4); Mean Corpuscular Hemoglobin 29.9 pg (27.0-31.2); Mean Corpuscular Volume 89.2 fl (80-94); Mean Platelet Volume 9.8 fl (7.4-10.4); Monocytes # 0.5 K/mm3 (0.1-1.0); Monocytes % 9.1 % (1.7-9.3); Neutrophils # 2.5 K/mm3 (1.8-7.8); Neutrophils % 45.8 % (37.0-80.0); Nucleated Red Blood Cells # 0 10^3/uL; Nucleated Red Blood Cells % 0 %; Platelet Count 219 K/mm3 (142-424); Red Blood Count 5.08 M/mm3 (4.60-6.20); Red Cell Distribution Width-SD 39.2 fL; White Blood Count 5.5 K/mm3 (4.8-10.8)
[2025-01-29 10:21] LABS: Chloride 105 mmol/L (98-107); Sodium 141 mmol/L (136-145)
[2025-01-29 10:22] LABS: Potassium 4.6 mmoL/L (3.5-5.1)
[2025-01-29 10:25] LABS: Anion Gap 11.6 mEq/L (5-15); Blood Urea Nitrogen 14 mg/dl (9-20); Calcium 9.9 mg/dl (8.4-10.2); Carbon Dioxide 29 mmol/L (22.0-30.0); Estimated Glomerular Filt Rate 59 ml/min (>60); GFR (African American) 71 ML/MIN (>60); Glucose 192 mg/dl (74-100)
--- OUTSIDE RECORDS SUMMARY | 2025-01-29 23:08 | XMS_ITS | Data Portability ---
Author Organization [facility] Address [address] [place] [address] Care Team Providers Care Project Control Officer Name Role Phone DANIEL GALLEGOS Referring Provider [phone] Assessment Encounter Date Assessment Date Assessment LastModified by Organization Details LastModified Time 10/29/2019 10/29/2019 SURGERY DATE: 10/29/2019 PREOPERATIVE DIAGNOSIS: Elevated PSA. POSTOPERATIVE DIAGNOSIS: Elevated PSA. PROCEDURE: Transrectal ultrasound needle biopsy of the prostate. ANESTHESIA: Local MAC. SPECIMEN: Six from the left, 6 from the right. SURGEON: Rodrigo Hair MD BRIEF HISTORY: The patient recently noted to have an elevated PSA of 7.2. Previous PSAs have been normal. We discussed the options and we elected to proceed with transrectal ultrasound needle biopsy of prostate. He requested sedation. OPERATIVE NOTE: Anesthesia provided sedation. After adequate sedation in the left lateral position, the probe was placed into the rectum, calculated volume to be 21 mLs. Internal echogenic pattern was unremarkable, although he did seem to have asymmetric enlargement toward the right side. Standard prostate biopsies were taken, 3 medially and 3 laterally from the base down to the apex, well tolerated, minimal bleeding noted. The patient tolerated the procedure well and was transfered to postop area in stable condition. He will complete his antibiotics. We will contact him with his results. [email or web address] Not available 10/30/2019 00:16:31 Plan of Treatment Reminders Order Date Submit Date Provider Last Modified By Organization Details Last Modified Time Details Appointments None recorded. Lab urinalysi s, dipstick, auto 2018 019 [facility], [address], [address], [place], [address], 9 16:40:18 Referral None recorded. Procedures None recorded. Surgeries None recorded. Imaging None recorded. Medication Orders Levaquin 750 mg tablet 2018 019 INTERFACE [facility], [address], [address], 9 16:40:27 Patient TargetsNo targets recorded. Patient Instructions Encounter Date Encounter Id Patient Instructions Last Modified By Organization Details Last Modified Time 10/13/2019 [id number] prostate biopsy: about this test [email or web address] Not available 10/13/2019 16:40:18 Reason for Referral None Reported. Results Created Date Observation Date Name Description Value Unit Range Abnormal Flag Note LastModifiedBy Organization Detail LastModifiedTime 10/13/20 19 10/13/2019 urina lysis , dipst ick, auto Unknown Analyte Straw Not Available [facility] [address] [address], [address], 10/13/2019 16:18:27 10/13/20 19 10/13/2019 urina lysis , dipst ick, auto Unknown Analyte Clear Not Available [facility] [address], [place], [address], 10/13/2019 16:18:27 10/13/20 19 10/13/2019 urina lysis , dipst ick, auto Unknown Analyte 1.020 Not Available [facility] [address], [place], [address], 10/13/2019 16:18:27 10/13/20 19 10/13/2019 urina lysis , dipst ick, auto Unknown Analyte 1.003 - 1.035 Not Available [facility] [address], [place], [address], 10/13/2019 16:18:27 10/13/20 19 10/13/2019 urina lysis , dipst ick, auto Unknown Analyte 5.0 Not Available [facility] [address], [place], [address], 10/13/2019 16:18:27 10/13/20 19 10/13/2019 urina lysis , dipst ick, auto Unknown Analyte 5.0 - 8.0 Not Available [facility] [address], [place], [address], 10/13/2019 16:18:27 10/13/20 19 10/13/2019 urina lysis , dipst ick, auto Unknown Analyte Negati ve Not Available [facility] [address], [place], [address], 10/13/2019 16:18:27 10/13/20 19 10/13/2019 urina lysis , dipst ick, auto Unknown Analyte Negati ve Not Available [facility] [address], [place], [address], 10/13/2019 16:18:27 10/13/20 19 10/13/2019 urina lysis , dipst ick, auto Unknown Analyte Negati ve Not Available [facility] [address], [place], [address], 10/13/2019 16:18:27 10/13/20 19 10/13/2019 urina lysis , dipst ick, auto Unknown Analyte Negati ve Not Available [facility] [address], [place], [address], 10/13/2019 16:18:27 10/13/20 19 10/13/2019 urina lysis , dipst ick, auto Unknown Analyte Trace Not Available [facility] [address], [place], [address], 10/13/2019 16:18:27 10/13/20 19 10/13/2019 urina lysis , dipst ick, auto Unknown Analyte Negati ve - Trace Not Available [facility] [address], [place], [address], 10/13/2019 16:18:27 10/13/20 19 10/13/2019 urina lysis , dipst ick, auto Unknown Analyte 250 mg/dl Not Available [facility] [address], [place], [address], 10/13/2019 16:18:27 10/13/20 19 10/13/2019 urina lysis , dipst ick, auto Unknown Analyte Normal Not Available [facility] [address], [place], [address], 10/13/2019 16:18:27 10/13/20 19 10/13/2019 urina lysis , dipst ick, auto Unknown Analyte Negati ve Not Available [facility] [address], [place], [address], 10/13/2019 16:18:27 10/13/20 19 10/13/2019 urina lysis , dipst ick, auto Unknown Analyte Negati ve Not Available [facility] [address], [place], [address], 10/13/2019 16:18:27 10/13/20 19 10/13/2019 urina lysis , dipst ick, auto Unknown Analyte Normal Not Available [facility] [address], [place], [address], 10/13/2019 16:18:27 10/13/20 19 10/13/2019 urina lysis , dipst ick, auto Unknown Analyte Normal - 1mg/dl Not Available [facility] [address], [place], [address], 10/13/2019 16:18:27 10/13/20 19 10/13/2019 urina lysis , dipst ick, auto Unknown Analyte Negati ve Not Available [facility] [address], [place], [address], 10/13/2019 16:18:27 10/13/20 19 10/13/2019 urina lysis , dipst ick, auto Unknown Analyte Negati ve Not Available [facility] [address], [place], [address], 10/13/2019 16:18:27 10/13/20 19 10/13/2019 urina lysis , dipst ick, auto Unknown Analyte 50 Lenin/ul Not Available [facility] [address], [place], [address], 10/13/2019 16:18:27 10/13/20 19 10/13/2019 urina lysis , dipst ick, auto Unknown Analyte Negati ve Not Available [facility] [address], [place], [address], 10/13/2019 16:18:27 10/13/20 19 10/13/2019 urina lysis , dipst ick, auto Unknown Analyte Clean Catch Not Available [facility] [address], [place], [address], 10/13/2019 16:18:27 10/13/20 19 10/13/2019 urina lysis , dipst ick, auto Unknown Analyte Automa anjum Not Available [facility] [address], [place], [address], 10/13/2019 16:18:27 10/29/19 20 [facility] SEE BELOW Depar tment of Patho logy Surg laura Patho logy Repor t NAME: MANGO KIARRA MARK PATH. :[id number] Copy to: Diagn osis: A) Left prost ate biops y: Benig n prost ate tissu e. B) Right prost ate biops y: Benig n prost ate tissu e with patch y chron ic activ e infla mmati on. SOURC E OF SPECI MEN: PROST ATE , LEFT PROST ATE , RIGHT CLINI LAURA INFOR MATIO N: R97.2 0 PSA LEVEL - 7.21 ULTRA SOUND Gross Descr iptio n: A) Recei manjit in forma bere label ed with the patie nt's name and desig nated as left prost ate biops y are seven thin cores of dominguez-w jesus tissu e measu ring 0.6, 0.7, 1.3, 1.4, 1.6 and (2) 1.7 cm in lengt h. Entir ana maria submi tted in one block . B) Recei manjit in forma bere label ed with the patie nt's name and desig nated as righ t prost ate biops y are seven thin cores of dominguez-w jesus tissu e measu ring 0.3, (2) 1.1, 1.5, 1.6, 2.0 and 2.1 cm in lengt h. Entir ana maria submi tted in one block . JAB 10/29 05:08 PM Micro scopi c Descr iptio n: Secti ons revea l prost ate tissu e demon strat ing gland ular and marianne al hyper plasi a. Occas ional clust ered gland s are noted . Immun opero xidas e stain s for high molec ular weigh t cytok erati n (CK5, CK14) and p63 demon strat e basal cells in the gland s in quest ion, where as stain s for racem ase, also sandra d P504S (a marke r prefe renti ally expre ssed in prost ate cance r) are negat anil, suppo rting a benig n diagn osis. This test was devel oped and its perfo rmanc e asia cteri stics deter mined by the [employer] [facility] [facility]o logy Depar tment . It has not been clear ed or appro manjit by the [place] Food and Drug Admin istra tion (FDA) . The FDA has deter mined that such clear ance or appro martha is not neces xi. These tests are used solel y for clini laura purpo ses. They shoul d not be regar ded as inves tigat ional or for resea rch. This labor atory is regul ated under the Clini laura Labor atory Impro vemen t Amend ments of 1987 (CLIA ' 88), as quali fied to perfo rm high compl exity testi ng. ILA Hernandez MD Sarahi d Out Date: 11/01 15:24 Page 1 of 1 Not Available [facility] [facility], [place], [address], 11/01/2019 15:25:18 Result Notes None recorded. Problems Name Problem SNOMED Code Status Onset Date Resolution Date Notes Provider Name and Address Organization Details Recorded Time Skin sensation disturbance 72264411 Active 2015 Status: Active Not Available [employer] 6 09:53:32 Problem Notes None recorded. Procedures Surgical History Date Name Laterality Status Provider Name and Address Organization Details Recorded Time 5 gastric ulcer operation completed Socorro Mayes [facility] 10/13/2019 16:17:34 Imaging Results None recorded. Procedure Notes None recorded. Medical Equipment None Reported. Allergies No known drug allergies Medications Name Sig Start Date Stop Date Status Note LastModified by Organization Details LastModified Time Levaquin 750 mg tablet Take 1 tablet every day by oral route. 2018 active Not Available Not Available Not Avai lable gemfibroz il 600 mg tablet Two times a day 10/13 completed Frequenc y: bid;Medi cation Descript ion: gemfibro zil; Dosage:1 ; Route:or al; refills: 0 Not Available Not Available Not Available pantopraz ole 40 mg tablet,de layed release Take 1 tablet every day by oral route. active Not Available Not Available No t Available gabapenti n 300 mg capsule Take 1 capsule 3 times a day by oral route. active Not Available Not Available No t Available Baby Aspirin 81 mg chewable tablet Chew 1 tablet every day by oral route. active Not Available Not Available No t Available benazepri l 40 mg tablet Daily 10/13 completed Frequenc y: daily;Me dication Descript ion: benazepr il; Dosage:1 ; Route:or al; refills: 0 Not Available Not Available Not Available Fish Oil 10/13 completed Medicati on Descript ion: omega-3 polyunsa turated fatty acids; Route:or al; refills: 0 Not Available Not Available Not Available amlodipin e 5 mg-benaze pril 40 mg capsule Take 1 capsule every day by oral route. active Not Available Not Available No t Available metformin ER 500 mg 24 hr tablet,ex tended release (gastric retention ) Take 2 tablets twice a day by oral route. active Not Available Not Available No t Available metoprolo l succinate ER 25 mg capsule sprinkle, ext. release 24 hr Take 1 capsule every day by oral route. active Not Available Not Available No t Available Vitals Date Recorded Body height Body mass index (BMI) Body weight Heart rate Systolic blood pressure Diastolic blood pressure Provider Name and Address Organization Details Last Updated DateTime 9 185.42 cm 22.4 kg/m2 03691.7 g 74 /min 136 mm[Hg] 80 mm[Hg] Socorro Mayes [facility] 9 16:15:06 Social History Question Answer Notes LastModified by Organizat ion Details LastModified Time Tobacco Smoking Status [facility]oker [facility]2019 16:17:12 What Is Your Level Of Alcohol Consumption? None Information not available 10/13/2019 How Much Tobacco Do You Chew? None Information not available 10/13/2019 What Is Your Occupation? Retired Information not available 10/13/2019 Mar[facility] Status [email or web address] Informatio n not available 10/13/2019 Sex: Unknown Functional Status None recorded. Mental Status None recorded. Family History Relationship Description Onset Age of this Age Resolved Age Notes LastModified by Organization Details LastModified Time Son Diabetes mellitus [facility] Not available 2018 16:17:06 Medical History Condition Response Hypertension Y Past Encounters Encounter ID Performer Location Encounter Start Date Encounter Closed Date Diagnosis/Indication Diagnosis SNOMED-CT Code Diagnosis ICD10 Code Diagnosis Note [id number] RODRIGO HAIR MD [facility] [address] [place] [address] 10/13/2019 15:23:21 10/13/2019 16:52:16 Prostate specific antigen above reference range 070409917 R97.20 considerin g the abrupt rise of PSA suggest he consider transrecta l ultrasound -guided needle biopsy of prostate. We discussed the procedure in detail including risk of bleeding and infection. He understand s and wishes to proceed wishes to have sedation. We will arrange. [id number] RODRIGO HAIR MD SURGERY SCHEDULE [address] [place] [address] 10/29/2019 10:17:19 10/29/2019 10:19:30 Health Concerns Section Related Observation LastModified by Organization Detai ls LastModified Time None Recorded Concern Status LastModified by Organization Details LastModified Time None Recorded Advance Directives Directive None Recorded Payers Encounter Date Sequence Insurance Name Policy Number Policy Mendoza Covered Member ID Mendoza Member ID Guarantor Name 10/13/2019 1 [place] Mark Keene [id number] Mark Keene 10/13/2019 2 [employer] - PLAN G (MEDICARE SUPPLEMENT) Mark Keene [id number] Mark Keene 10/29/2019 1 [place] Mark Keene [id number] Mark Keene 10/29/2019 2 [employer] - PLAN G (MEDICARE SUPPLEMENT) Mark Keene [id number] Mark Keene Notes Date Note Type Note Provider Name and Address Organization Details Recorded Time 10/13/2019 text/html patient is here for initial visit regarding recently noted elevated PSA. His knowledge he has never had an elevated PSA. He does see Dr. Gallegos on a regular basis. He has no family history of prostate cancer. PSA in August was 7.2. He has had no change in urination symptoms. He typically has nocturia ? 1 RODRIGO HAIR MD [facility] [place], [address], [facility] 10/16/2019 21:47:08
== END 2025-01-29 23:59 | disposition home or self-care (01) ==
LOC: LAB 09:45
PROVIDERS: PCP Internal Medicine; Visit Provider Internal Medicine
DX: Z95.5 Presence of coronary angioplasty implant and graft (principal)
CPT/HCPCS: 36415; 80048; 85025

== ENCOUNTER 2025-03-07 08:43 | Emergency (ER) | payer MEDICARE, SELFPAY ==
[2025-03-07 08:49] VITALS: BP 134/78; PULSE 72; RESP 18; TEMP 36.6; O2SAT 98; BMI 22.4
--- OUTSIDE RECORDS SUMMARY | 2025-03-07 09:04 | XMS_ITS | Data Portability ---
Author Organization [facility] Address [address] [place] [address] Care Team Providers Care Court Advocate Name Role Phone DANIEL GALLGEOS Referring Provider Assessment Encounter Date Assessment Date Assessment LastModified [...] Lab urinalysi s, dipstick, auto 2018 019 [email or web address] [facility] Urology [facility], [address], [address], [place], [address], 9 16:40:18 Referral None recorded. Procedures None recorded. Surgeries None recorded. Imaging None recorded. Medication Orders Levaquin 750 mg tablet 2018 019 INTERFACE [facility], [address], [address], 9 16:40:27 Patient TargetsNo targets recorded. Patient Instructions Encounter Date Encounter Id Patient Instructions Last Modified By Organization Details Last Modified Time 10/13/2019 [id number] prostate biopsy: about this test [email or web address] Not available 10/13/2019 16:40:18 Reason for Referral None Reported. Results Created Date Observation Date Name Description Value Unit Range Abnormal Flag Note LastModifiedBy Organization Detail LastModifiedTime 10/13/20 19 10/13/2019 urina lysis , dipst ick, auto Unknown Analyte Straw Not Available [facility] [address] [address], [address], 10/13/2019 16:18:27 10/13/20 19 10/13/2019 urina lysis , dipst ick, auto Unknown Analyte Clear Not Available [facility] [address], [place], [address], 10/13/2019 16:18:27 10/13/20 19 10/13/2019 urina lysis , dipst ick, auto Unknown Analyte 1.020 Not Available [facility] [address], [place], [address], 10/13/2019 16:18:27 10/13/20 19 10/13/2019 urina lysis , dipst ick, auto Unknown Analyte 1.003 - 1.035 Not Available [facility] [address], [place], [address], 10/13/2019 16:18:27 10/13/20 19 10/13/2019 urina lysis , dipst ick, auto Unknown Analyte 5.0 Not Available [facility] U[facility] [address], [place], [address], 10/13/2019 16:18:27 10/13/20 19 10/13/2019 urina lysis , dipst ick, auto Unknown Analyte 5.0 - 8.0 Not Available [facility] [address], [place], [address], 10/13/2019 16:18:27 10/13/20 19 10/13/2019 urina lysis , dipst ick, auto Unknown Analyte Negati ve Not Available [facility] [address], [place], [address], 10/13/2019 16:18:27 10/13/20 19 10/13/2019 urina lysis , dipst ick, auto Unknown Analyte Negati ve Not Available [facility] [address], [place], [address], 10/13/2019 16:18:27 10/13/20 19 10/13/2019 urina lysis , dipst ick, auto Unknown Analyte Negati ve Not Available [facility] [address], [place], [address], 10/13/2019 16:18:27 10/13/20 19 10/13/2019 urina lysis , dipst ick, auto Unknown Analyte Negati ve Not Available [facility] [address], [place], [address], 10/13/2019 16:18:27 10/13/20 19 10/13/2019 urina lysis , dipst ick, auto Unknown Analyte Trace Not Available [facility] [address], [place], [address], 10/13/2019 16:18:27 10/13/20 19 10/13/2019 urina lysis , dipst ick, auto Unknown Analyte Negati ve - Trace Not Available [facility] [address], [place], [address], 10/13/2019 16:18:27 10/13/20 19 10/13/2019 urina lysis , dipst ick, auto Unknown Analyte 250 mg/dl Not Available [facility] [address], [place], [address], 10/13/2019 16:18:27 10/13/20 19 10/13/2019 urina lysis , dipst ick, auto Unknown Analyte Normal Not Available [facility] [address], [place], [address], 10/13/2019 16:18:27 10/13/20 19 10/13/2019 urina lysis , dipst ick, auto Unknown Analyte Negati ve Not Available [facility] [address], [place], [address], 10/13/2019 16:18:27 10/13/20 19 10/13/2019 urina lysis , dipst ick, auto Unknown Analyte Negati ve Not Available [facility] [address], [place], [address], 10/13/2019 16:18:27 10/13/20 19 10/13/2019 urina lysis , dipst ick, auto Unknown Analyte Normal Not Available [facility] [address], [place], [address], 10/13/2019 16:18:27 10/13/20 19 10/13/2019 urina lysis , dipst ick, auto Unknown Analyte Normal - 1mg/dl Not Available [facility] [address], [place], [address], 10/13/2019 16:18:27 10/13/20 19 10/13/2019 urina lysis , dipst ick, auto Unknown Analyte Negati ve Not Available [facility] [address], [place], [address], 10/13/2019 16:18:27 10/13/20 19 10/13/2019 urina lysis , dipst ick, auto Unknown Analyte Negati ve Not Available [facility] [address], [place], [address], 10/13/2019 16:18:27 10/13/20 19 10/13/2019 urina lysis , dipst ick, auto Unknown Analyte 50 Lenin/ul Not Available [facility] [address], [place], [address], 10/13/2019 16:18:27 10/13/20 19 10/13/2019 urina lysis , dipst ick, auto Unknown Analyte Negati ve Not Available [facility] [address], [place], [address], 10/13/2019 16:18:27 10/13/20 19 10/13/2019 urina lysis , dipst ick, auto Unknown Analyte Clean Catch Not Available [facility] [address], [place], [address], 10/13/2019 16:18:27 10/13/20 19 10/13/2019 urina lysis , dipst ick, auto Unknown Analyte Automa anjum Not Available [facility] [address], [place], [address], 10/13/2019 16:18:27 10/29/19 20 10/29/2019 [facility] SEE BELOW [...] asia cteri stics deter mined [facility] Depar tment [...] 15:24 Page 1 of 1 Not Available [facility], [place], [address], 11/01/2019 15:25:18 Result Notes None recorded. Problems Name Problem SNOMED Code Status Onset Date Resolution Date Notes Provider Name and Address Organization Details Recorded Time Skin sensation disturbance 40934230 Active 2015 Status: Active Not Available [facility] 6 09:53:32 Problem Notes None recorded. Procedures Surgical History Date Name Laterality Status Provider Name and Address Organization Details Recorded Time 5 gastric ulcer operation completed Socorro Mayes [facility] 10/13/2019 16:17:34 Imaging Results None [...] Updated DateTime 9 185.42 cm 22.4 kg/m2 50304.7 g 74 /min 136 mm[Hg] 80 mm[Hg] Socorro Mayes [facility] 9 16:15:06 Social History Question Answer Notes LastModified by Organizat ion Details LastModified Time Tobacco Smoking Status [facility]2019 16:17:12 How Much Tobacco Do You Chew? None Information not available 10/13/2019 Marital Status Informatio n not available 10/13/2019 Sex: Unknown Functional Status Question Answer Note LastModified by Organization D etails LastModified Time What is your level of alcohol consumption? None Information not available 10/13/2019 What is your occupation? retired Information not available 10/13/2019 Mental Status None recorded. Family History Relationship Description Onset Age of this Age Resolved Age Notes LastModified by Organization Details LastModified Time Son Diabetes mellitus ajors Not available 2018 16:17:06 Medical History Condition Response Hypertension Y Past Encounters Encounter ID Performer Location Encounter Start Date Encounter Closed Date Diagnosis/Indication Diagnosis SNOMED-CT Code Diagnosis ICD10 Code Diagnosis Note [id number] RODRIGO HAIR MD [facility] [address] [facility] [place] [address] 10/13/2019 15:23:21 10/13/2019 16:52:16 Prostate specific antigen above reference range 771756890 R97.20 considerin g the abrupt rise of PSA suggest he consider transrecta l ultrasound -guided needle biopsy of prostate. We discussed the procedure in detail including risk of bleeding and infection. He understand s and wishes to proceed wishes to have sedation. We will arrange. [id number] RODRIGO HAIR MD SURGERY SCHEDULE [address] [place] [address] 10/29/2019 10:17:19 10/29/2019 10:19:30 Health Concerns Section Related Observation LastModified by Organization Detai ls LastModified Time None Recorded Concern Status LastModified by Organization Details LastModified Time None Recorded Advance Directives Directive None Recorded Payers Insurance Date Sequence Insurance Name Policy Number Policy Mendoza Covered Member ID Mendoza Member ID Guarantor Name 10/13/2019 2 [id number] - PLAN G (MEDICARE SUPPLEMENT) Mark Keene [id number] Mark Keene 10/28/2019 1 [place] Mark Keene [id number] Mark Keene Notes Date Note Type Note [...] has nocturia ? 1 RODRIGO HAIR MD [address] [place] [address], [address], [facility] 10/16/2019 21:47:08
[2025-03-07 09:11] LABS: Strep Scrn Group A (Rapid) Negative (Negative)
--- NOTE | 2025-03-07 09:12 | CT_ITS ---
PROCEDURE INFORMATION: Exam: CT Neck With Contrast Exam date and time: 03/07/2025 9:56 AM Age: 75 years old Clinical indication: Dysphagia / difficulty swallowing and other: Swelling/hoarse/sig swellig op; Painful swallowing and throat pain TECHNIQUE: Imaging protocol: Computed tomography of the neck with contrast. Radiation optimization: All CT scans at this facility use at least one of these dose optimization techniques: automated exposure control; mA and/or kV adjustment per patient size (includes targeted exams where dose is matched to clinical indication); or iterative reconstruction. Contrast material: ISOVUE; Contrast volume: 75 ml; Contrast route: IV; COMPARISON: US CA CAROTID DUPLEX BI 01/04/2024 2:03 PM FINDINGS: Salivary glands: Normal. Glands are normal in size. Pharynx: There appears to be a right peritonsillar abscess measuring 1.6 x 1.8 x 1.8 cm. The uvula appears mildly edematous. Larynx: There is some mild nonspecific subglottic edema along the right (series 3, image 55). Thyroid: Normal. No enlarged or calcified nodules. Trachea: Visualized trachea is unremarkable. Lungs: Unremarkable as visualized. Lymph nodes: Mildly prominent cervical chain lymph nodes are likely reactive. Bones/joints: Unremarkable. No acute fracture. Soft tissues: Probable small sebaceous cyst over the upper left chest wall anteriorly. IMPRESSION: 1. There appears to be a right peritonsillar abscess measuring 1.6 x 1.8 x 1.8 cm. 2. There is some mild nonspecific subglottic edema along the right (series 3, image 55), possibly infectious or inflammatory. THIS REPORT CONTAINS FINDINGS THAT MAY BE CRITICAL TO PATIENT CARE. The findings were verbally communicated via telephone conference with Wes Murphy at 11:12 AM EDT on 03/07/2025. The findings were acknowledged and understood.
[2025-03-07] MEDS: DEXAMETHASONE 4MG/ML 1ML VIAL 10 MG IV (09:24)
[2025-03-07] MEDS: KETOROLAC 30MG/ML VIAL 15 MG IV (09:24)
[2025-03-07] MEDS: BELLADONNA ALKALOIDS 60 ML ML PO (09:24)
[2025-03-07 09:32] LABS: Basophils % 0.4 % (0.1-2.0); Eosinophils # 0.1 Kmm3 (0.0-0.4); Eosinophils % 0.7 % (0.1-12.0); Hematocrit 44.5 % (42.0-52.0); Hemoglobin 15.6 g/dL (14.1-18.0); Immature Granulocytes # 0.02 10^3uL; Immature Granulocytes % 0.2 %; Lymphocytes # 1.6 K/mm3 (0.7-4.5); Lymphocytes % 17.7 % (10-50); Mean Corpuscular HGB Conc 35.1 g/dL (31.8-35.4); Mean Corpuscular Hemoglobin 30.5 pg (27.0-31.2); Mean Corpuscular Volume 87.1 fl (80-94); Mean Platelet Volume 9.9 fl (7.4-10.4); Monocytes # 0.9 K/mm3 (0.1-1.0); Neutrophils # 6.4 K/mm3 (1.8-7.8); Nucleated Red Blood Cells # 0 10^3/uL; Nucleated Red Blood Cells % 0 %; Platelet Count 174 K/mm3 (142-424); Red Blood Count 5.11 M/mm3 (4.60-6.20); Red Cell Distribution Width 11.5 % (11.5-17.5)
--- NOTE | 2025-03-07 09:41 | HMH.EDGENADL ---
Discharge Plan Disposition Patient Disposition: Home, Self-Care Prescriptions Prescriptions: New amoxicillin-pot clavulanate 875-125 mg tablet 1 tab PO BID 10 Days Qty: 20 0RF No Action rosuvastatin 40 mg tablet 40 mg PO DAILY Qty: 90 3RF Creon 36,000-114,000- 180,000 unit capsule,delayed release(DR/EC) 2 cap PO BID Qty: 100 3RF Rx Instructions: administer with meals and/or snacks fenofibrate micronized 134 mg capsule 134 mg PO DAILY Qty: 90 1RF metoprolol tartrate 25 mg tablet See Rx Instructions .ROUTE .COMPLEX Qty: 180 1RF Dose Instruction: TAKE 1 TABLET BY MOUTH TWICE DAILY FOR HIGH BLOOD PRESSURE Rx Instructions: TAKE 1 TABLET BY MOUTH TWICE DAILY FOR HIGH BLOOD PRESSURE pantoprazole 40 mg tablet,delayed release (DR/EC) See Rx Instructions .ROUTE .COMPLEX Qty: 90 1RF Dose Instruction: TAKE 1 TABLET BY MOUTH AT BEDTIME FOR GERD Rx Instructions: TAKE 1 TABLET BY MOUTH AT BEDTIME FOR GERD gabapentin 300 mg capsule 600 mg PO HS Qty: 60 2RF (DME) Accu-Chek Guide test strips Strip See Rx Instructions .ROUTE .MEDSUPPLY Qty: 100 5RF Rx Instructions: check sugar 3 times daily tramadol 50 mg tablet 50 mg PO Q8H PRN (Reason: pain) Qty: 30 2RF temazepam 15 mg capsule 15 mg PO HS PRN (Reason: sleep) Qty: 30 0RF amlodipine-benazepril 5-40 mg capsule 1 cap PO DAILY Qty: 90 1RF insulin degludec [Tresiba FlexTouch U-200] 200 unit/mL (3 mL) insulin pen See Rx Instructions .ROUTE .COMPLEX Qty: 9 3RF Dose Instruction: INJECT 15 UNITS SUBCUTANEOUSLY TWICE DAILY DIRECTED Rx Instructions: INJECT 15 UNITS SUBCUTANEOUSLY TWICE DAILY DIRECTED clopidogrel [Plavix] 75 mg Tablet 75 mg PO DAILY Qty: 30 6RF aspirin 81 mg Capsule 81 mg PO DAILY Qty: 30 3RF metformin 500 MG tablet extended release 24 hr 1,000 mg PO BID Referrals Follow up/Referrals: Elian Gallegos MD [Primary Care Provider] - See instructions Activity Restrictions/Add. Instructions Additional Instructions/Restrictions: Call your family doctor to establish care for this visit to the emergency department and schedule follow-up within 48 hours to ensure improvement. If you have any worsening of your condition or any other concerning signs or symptoms, return to the emergency department or your primary care doctor for further evaluation. Antibiotic twice daily for 10 days Clinical Impressions Clinical Impression: Peritonsillar abscess, Uvulitis Print Language Print Language: Cypriot Discharge ED Provider: Wes Murphy General Adult HPI General Chief complaint: Upper Respiratory Infection Stated complaint: sore throat diff swallowing Time Seen by Provider: 03/07/25 08:46 Mode of Arrival: Ambulatory Source of Information: Patient Description of Symptoms (Recalled from ER Triage Doc. by RN): pt has had a sore throat for a few days. been doing otc throat spray. denies other symptopmws History of Present Illness HPI narrative: Please note that above description of symptoms, in this electronic medical record under categorization of recalled from ER triage doctor by RN are reflective of an initial nursing assessment, however, is not reflective of my full history and physical exam that was personally taken and clarified. Consequentially, this preceding description of symptoms, which may include the patient's categorized chief complaint in the EMR, do not reflect my personal clinical impression, and the ultimate description of history of present illness and patient stated complaints should be deferred to this section of the note. Unless stated otherwise or congruent with this section of the note, additional signs, symptoms, or incongruence should be interpreted as inaccurate with my clinical impression. Related Data Home Medications ?Medication ?Instructions ?Recorded ?Confirmed metformin 500 mg tablet,extended 1,000 mg PO BID Diabetes 10/23/20 02/03/25 release 24 hr Previous Rx's ?Medication ?Instructions ?Recorded fenofibrate micronized 134 mg 134 mg PO DAILY #90 caps 08/26/24 capsule [id number] 2 cap PO BID #100 caps 09/09/24 36,000-114,000-180,000 unit capsule,delay rel (Creon) metoprolol tartrate 25 mg tablet See Rx Instructions .Route 10/21/24 .COMPLEX #180 tabs pantoprazole 40 mg tablet,delayed See Rx Instructions .Route 10/29/24 release .COMPLEX #90 tabs gabapentin 300 mg capsule 600 mg (2 x 300 mg) PO HS #60 caps 11/28/24 blood sugar diagnostic (Accu-Chek #100 ea 12/05/24 Guide test strips) tramadol 50 mg tablet 50 mg PO Q8H PRN pain #30 tabs 12/10/24 temazepam 15 mg capsule 15 mg PO HS PRN sleep #30 caps 01/16/25 aspirin 81 mg capsule 81 mg PO DAILY #30 caps 01/27/25 clopidogrel 75 mg tablet (Plavix) 75 mg PO DAILY #30 tabs 01/27/25 rosuvastatin 40 mg tablet 40 mg PO DAILY #90 tabs 02/03/25 amlodipine 5 mg-benazepril 40 mg 1 cap PO DAILY Hypertension #90 02/26/25 capsule caps Tresiba FlexTouch U-200 200 See Rx Instructions .Route 03/06/25 unit/mL (3 mL) subcutaneous pen .COMPLEX #9 mL (insulin degludec) amoxicillin 875 mg-potassium 1 tab PO BID 10 days #20 tabs 03/07/25 clavulanate 125 mg tablet Allergies Allergy/AdvReac Type Severity Reaction Status Date / Time No Known Allergies Allergy Verified 02/03/25 13:44 [facility] Disclaimer: The information contained in this section may have been updated after the patient was seen, as this information can be updated by other users. Medical History (Updated 03/07/25 @ 11:28 by Wes Murphy MD) CAD (coronary artery disease) Claudication Hyperlipidemia Diabetes mellitus, type 2 Hypertension Surgical History (Updated 02/03/25 @ 13:44 by Felicity Santos) S/P cardiac cath History of colonoscopy History of cholecystectomy Family History Other No significant family history Social History Smoking Status: Never smoker alcohol intake: never substance use type: denies use current occupational status: retired Travel in the last 8 weeks?: None household members: spouse housing: house current occupational exposures/hazards: No caffeine: Yes Have you lived/traveled outside [place] in past 30 days?: No Contact w/someone who lives/traveled outside [place] past 30 days?: No Exposure to someone with infectious disease in past 14 days?: No Do you have a fever (greater than 100.4 F or 38 C)?: No Have you tested positive for COVID-19?: No Exposed to someone with COVID-19 in past 14 days?: No Do you have a sore throat?: Yes Do you have a cough?: No Do you have any weakness?: No Do you have any diarrhea?: No Are you experiencing any unusual bleeding?: No Do you have any muscle aches/pain?: No Do you have any abdominal pain?: No Are you experiencing loss of taste or smell?: No Other Medical History Have you received the Flu Vaccine for this season: Yes Have you received the Pneumonia Vaccine: Yes ROS Obtained: Yes All systems reviewed & no additional complaints except as documented Physical Exam General General appearance: alert Head Head exam: atraumatic and normocephalic Eye Eye exam: Present normal appearance, PERRL and EOMI ENT ENT exam: Present other (Tonsillitis, pharyngeal erythema, soft palate swelling. Muffled voice. No evidence of uvular deviation, trismus, external neck swelling, submental induration, dental abscess, angioedema, or other abnormal christopher pharyngeal findings) Neck Neck exam: Present normal inspection, full ROM and trachea midline; Absent tenderness or lymphadenopathy Respiratory Respiratory exam: Absent respiratory distress, wheezes, stridor, accessory muscle use or prolonged expiratory phase Cardiovascular Cardiovascular exam: Present other (Pulses equal symmetric in upper and lower extremities) Abdominal Exam Abdominal exam: Present soft; Absent distention, tenderness or pulsatile mass Extremities Exam Extremities exam: Absent edema Neurological Exam Neurological exam: Present alert, oriented X3 and CN II-XII intact; Absent motor sensory deficit Skin Skin exam: Present warm and dry; Absent diaphoresis or erythema Medical Decision Making Medical Records Medical records reviewed: Yes I reviewed the patient's medical records. Screening: Per USPSTF and CDC recommendations, given the prevalence of disease in our region, it is our hospital?s policy to screen for HIV and viral Hepatitis for all patients aged 18 and over and those with ongoing risk factors. Kun Inquiry Pt receiving controlled substance: No Kun was queried for this patient: No Vital Signs: 03/07/25 08:49 03/07/25 10:34 03/07/25 11:00 Temperature 97.8 F Temperature Source Oral Pulse Rate 94 H 97 H Pulse Rate [Right] 72 Respiratory Rate 18 Blood Pressure 117/72 127/77 Blood Pressure [Right Arm] 134/78 Blood Pressure Mean [Right Arm] 96 02 Sat by Pulse Oximetry 98 97 96 Oxygen Delivery Method Room Air Room Air Lab Data Lab Results 03/07/25 08:50: Group A Strep Rapid Negative 03/07/25 09:24: WBC 9.0, RBC 5.11, Hgb 15.6, Hct 44.5, MCV 87.1, MCH 30.5, MCHC 35.1, RDW 11.5, Plt Count 174, MPV 9.9, Neut % (Auto) 71.0, Lymph % (Auto) 17.7, [place] % (Auto) 10.0 H, Eos % (Auto) 0.7, Baso % (Auto) 0.4, Neut # (Auto) 6.4, Lymph # (Auto) 1.6, [place] # (Auto) 0.9, Eos # (Auto) 0.1, Baso # (Auto) 0.0, Sodium 137, Potassium 4.2, Chloride 102, Carbon Dioxide 26, Anion Gap 13.2, BUN 16, Creatinine 1.30 H, Estimated Creat Clear 52, Estimated GFR 54 L, Est GFR ( Amer) 65, Glucose 139 H, Lactate 1.1, Calcium 9.5, Total Bilirubin 3.6 H, AST 23, ALT 21, Alkaline Phosphatase 89, Total Protein 7.3, Albumin 4.4, Globulin 2.9, Albumin/Globulin Ratio 1.5 03/07/25 09:24 03/07/25 09:24 Orders (Tests/Meds): ED MEDICATIONS Discontinued Medications Generic Name Dose Route Start Last Admin Trade Name Freq PRN Reason Stop Dose Admin Belladonna Alkaloids 60 ml 03/07/25 09:12 03/07/25 09:24 Belladonna Alkaloids 60 Ml Ml PO 03/07/25 09:13 60 ml ONCE ONE Administration Dexamethasone Sodium Phosphate 10 mg 03/07/25 09:12 03/07/25 09:24 Dexamethasone 4mg/Ml 1ml Vial IV 03/07/25 09:13 10 mg ONCE ONE Administration Ceftriaxone Sodium 2 gm/ 100 mls @ 200 mls/hr 03/07/25 09:16 03/07/25 09:44 Sodium Chloride IV 03/07/25 09:45 200 mls/hr ONCE ONE Administration Sodium Chloride 1,000 mls @ 999 mls/hr 03/07/25 09:16 03/07/25 09:45 Sod Chlor 0.9% 1000ml Bag IV 03/07/25 10:16 999 mls/hr .Q1H1M ONE Administration Iopamidol 75 ml 03/07/25 09:57 03/07/25 10:02 Iopamidol-370 (76%);100ml Bottle IV 03/07/25 09:58 75 ml ONCE ONE Administration Ketorolac Tromethamine 15 mg 03/07/25 09:12 03/07/25 09:24 Ketorolac 30mg/Ml Vial IV 03/07/25 09:13 15 mg ONCE ONE Administration Sodium Chloride 10 ml 03/07/25 09:57 03/07/25 10:02 Sodium Chloride 0.9% 10ml Syr (Rad Only) IV 03/07/25 09:58 10 ml ONCE ONE Administration ORDERS Category Date Time Status CT soft tissue neck w con Stat Cat Scan 03/07/25 09:12 Completed CBC w/Auto Diff [Complete Blood Count Auto Diff] Stat Lab 03/07/25 09:24 Completed CMP [Comprehensive Metabolic Panel] Stat Lab 03/07/25 09:24 Completed Lactic Acid Stat Lab 03/07/25 09:24 Completed Rapid Strep Scrn Group A [Strep Scrn Group A (Rapid)] Lab 03/07/25 08:50 Completed Stat Blood Culture Stat Micro 03/07/25 09:16 Received Strep Screen Confirmation Stat Micro 03/07/25 08:50 Received Medical Decision Narrative: 75-year-old male presenting with severe sore throat. He states that he just had stents placed in his main arteries, pointing to his neck. States that this happened a few days ago. For the past 3 to 4 days, he has had sore throat that is progressive in nature. Getting to the point where it is difficult to swallow. No difficulty breathing, pain with range of motion of neck up down left or right, fevers or chills, nausea or vomiting. His voice is also muffled. Has been using phenol solution [id number] to help with the pain, but came in for further evaluation. History was obtained via conversation with patient. On arrival, patient hemodynamically stable, alert, oriented x4, appropriate, GCS 15, moving all extremities spontaneously, pupils equal and reactive to light. Full physical exam performed and significant for uncomfortable appearing male who is in no acute distress. Uvula is inflamed and substantially enlarged. He has bilateral soft palate swelling and posterior pharyngeal arch swelling and tonsillitis without obvious exudate. No stridor, no range of motion of neck difficulties, no lymphadenopathy, no outward neck changes, speaking full sentences and in no acute distress. Differential includes bacterial pharyngitis, viral pharyngitis, tonsillitis, [employer]ING [employer]MENT [employer]ERK, RPA, among others. Patient placed on continuous cardiac monitoring and continuous pulse ox with initial blood pressure 134/78, heart rate 72, saturation 98% on room air. Patient was given first dose of ceftriaxone as well as Decadron here. independent interpretation workup with nonacute laboratory findings. CT soft tissue of the neck with large right sided peritonsillar abscess on independent interpretation. Patient was numbed up topically with Cetacaine, numbed up locally with lidocaine. Incised and drained with 11 blade scalpel and approximately 5 cc of purulent fluid were expressed. On reevaluation, patient resting comfortably after [employer] drainage and voice is actually improved. Given patient presentation, workup, history, this most likely represents uvulitis and peritonsillar abscess. Close return precautions were discussed. Because patient at baseline without signs or symptoms of clinical decompensation, deemed appropriate for discharge. Results were relayed to patient who voiced understanding and were agreeable to outpatient management and follow up. I discussed my clinical impression with patient and answered all questions. At this time, the evidence for any other entities in the differential is insufficient to warrant any further testing or ED observation. This was explained as well. Advisory was given that persistent or worsening symptoms require further evaluation. I confirmed the understanding of this discussion. Beauty Sales Advisor disclaimer Much of this encounter note is an electronic operator weapon locating radar spoken language to printed text. Electronic operator weapon locating radar of the spoken language may permit errors. Although I have reviewed the note, some errors may still exist. Procedures Abscess I/D Site: oral (peritonsillar) Side (if applicable): right Local Anesthetic: lidocaine 1% and other anesthetic (cetacaine) Amount of anesthesia used (mL): 2 Technique: incised with #11 blade Amount of fluid expressed (mL): 5 Irrigation: Yes Packing used?: none Critical Care Critical Care Time Critical Care Time: No
[2025-03-07 09:42] LABS: Albumin Level 4.4 g/dl (3.5-5.0); Chloride 102 mmol/L (98-107); Potassium 4.2 mmoL/L (3.5-5.1); Sodium 137 mmol/L (136-145)
[2025-03-07] MEDS: CEFTRIAXONE SODIUM 2 GM in 0.9 % SODIUM CHLORIDE 100 ML IV (09:44)
[2025-03-07 09:45] LABS: Alanine Aminotransferase 21 U/L (12-78); Albumin/Globulin Ratio 1.5 (1.1-1.8); Alkaline Phosphatase 89 U/L (38-126); Anion Gap 13.2 mEq/L (5-15); Aspartate Amino Transferase 23 U/L (17-59); Bilirubin,Total 3.6 mg/dl (0.2-1.3); Blood Urea Nitrogen 16 mg/dl (9-20); Calcium 9.5 mg/dl (8.4-10.2); Carbon Dioxide 26 mmol/L (22.0-30.0); Creatinine Clearance Estimated 52 mL/min (50-200); Estimated Glomerular Filt Rate 54 ml/min (>60); GFR (African American) 65 ML/MIN (>60); Globulin 2.9 g/dL (1.3-3.2); Glucose 139 mg/dl (74-100); Lactic Acid 1.1 mmol/L (0.7-2.1); Total Protein,Serum 7.3 g/dl (6.3-8.2)
[2025-03-07] MEDS: 0.9 % SODIUM CHLORIDE 1000ML 1,000 ML 999 ML IV (09:45)
--- NOTE | 2025-03-07 09:49 | PC.NURSE ---
patient gone for for CT at this time.
[2025-03-07] MEDS: IOPAMIDOL-370 (76%);100ML BOTTLE 75 ML IV (10:02)
[2025-03-07] MEDS: SODIUM CHLORIDE 0.9% 10ML SYR (RAD ONLY) 10 ML IV (10:02)
[2025-03-07 10:34] VITALS: BP 117/72; PULSE 94; O2SAT 97
[2025-03-07 11:00] VITALS: BP 127/77; PULSE 97; O2SAT 96
[2025-03-07 11:37] VITALS: BP 142/86; PULSE 90; RESP 20; TEMP 36.8; O2SAT 94
== END 2025-03-07 11:46 | disposition home or self-care (01) ==
PROVIDERS: Emergency Provider Emergency Medicine; PCP Internal Medicine
DX: J36 Peritonsillar abscess (principal); K12.2 Cellulitis and abscess of mouth
CPT/HCPCS: 42700; 70491; 80053; 83605; 85025; 87040; 87430; 96361; 96365; 96375; 99285; J0696; J1100; J1885; J7030; Q9967

== ENCOUNTER 2025-03-10 10:01 | Outpatient (CLI) | payer MEDICARE, SELFPAY ==
[2025-03-10 11:02] LABS: Erythrocyte Sedimentation Rate 14 mm/hr (0-20)
[2025-03-10 11:46] LABS: Vitamin B12 972 pg/mL (239-931)
== END 2025-03-10 23:59 | disposition home or self-care (01) ==
LOC: LAB 10:02
PROVIDERS: PCP Internal Medicine; Visit Provider Specialist
DX: M54.50 Low back pain, unspecified (principal); M79.605 Pain in left leg; R27.0 Ataxia, unspecified
CPT/HCPCS: 36415; 82607; 84425; 85651

== ENCOUNTER 2025-03-11 13:42 | Outpatient (POV) | payer MEDICARE, SELFPAY ==
--- OUTSIDE RECORDS SUMMARY | 2025-03-11 13:45 | XMS_ITS | Data Portability ---
Author Organization [facility] Address [address] [place] [address] Care Team Providers Care Commercial Lending Relationship Manager Name Role Phone DANIEL GALLEGOS Referring Provider Assessment Encounter Date Assessment Date [...] Lab urinalysi s, dipstick, auto 2018 019 [id number] [facility], [address], [address], [place], [address], 9 16:40:18 Referral None recorded. Procedures None recorded. Surgeries None recorded. Imaging None recorded. Medication Orders Levaquin 750 mg tablet 2018 019 INTERFACE [facility], [address], [address], 9 16:40:27 Patient TargetsNo targets recorded. Patient Instructions Encounter Date Encounter Id Patient Instructions Last Modified By Organization Details Last Modified Time 10/13/2019 [id number] prostate biopsy: about this test [email or web address] Not available 10/13/2019 16:40:18 Reason for Referral None Reported. Results Created Date Observation Date Name Description Value Unit Range Abnormal Flag Note LastModifiedBy Organization Detail LastModifiedTime 10/13/20 19 10/13/2019 urina lysis , dipst ick, auto Unknown Analyte Straw Not Available [facility] [address] [facility] [address], [address], 10/13/2019 16:18:27 10/13/20 19 10/13/2019 urina lysis , dipst ick, auto Unknown Analyte Clear Not Available [facility] [address], [place], [address], 10/13/2019 16:18:27 10/13/20 19 10/13/2019 urina lysis , dipst ick, auto Unknown Analyte 1.020 Not Available [facility] [address], [place], [address], 10/13/2019 16:18:27 10/13/20 19 10/13/2019 urina lysis , dipst ick, auto Unknown Analyte 1.003 - 1.035 Not Available [facility] [address], [place], [address], 10/13/2019 16:18:27 10/13/20 19 10/13/2019 urina lysis , dipst ick, auto Unknown Analyte 5.0 Not Available [facility] [address], [place], [address], 10/13/2019 16:18:27 10/13/20 19 10/13/2019 urina lysis , dipst ick, auto Unknown Analyte 5.0 - 8.0 Not Available [facility] [address], [place], [address], 10/13/2019 16:18:27 10/13/20 19 10/13/2019 urina lysis , dipst ick, auto Unknown Analyte Negati ve Not Available [facility] [address], [place], [address], 10/13/2019 16:18:27 10/13/20 19 10/13/2019 urina lysis , dipst ick, auto Unknown Analyte Negati ve Not Available [facility] [address], [place], [address], 10/13/2019 16:18:27 10/13/20 19 10/13/2019 urina lysis , dipst ick, auto Unknown Analyte Negati ve Not Available [facility] [address], [place], [address], 10/13/2019 16:18:27 10/13/20 19 10/13/2019 urina lysis , dipst ick, auto Unknown Analyte Negati ve Not Available [facility] [address], [place], [address], 10/13/2019 16:18:27 10/13/20 19 10/13/2019 urina lysis , dipst ick, auto Unknown Analyte Trace Not Available [facility] [address], [place], [address], 10/13/2019 16:18:27 10/13/20 19 10/13/2019 urina lysis , dipst ick, auto Unknown Analyte Negati ve - Trace Not Available [facility] [address], [place], [address], 10/13/2019 16:18:27 10/13/20 19 10/13/2019 urina lysis , dipst ick, auto Unknown Analyte 250 mg/dl Not Available [facility] [address], [place], [address], 10/13/2019 16:18:27 10/13/20 19 10/13/2019 urina lysis , dipst ick, auto Unknown Analyte Normal Not Available [facility] [address], [place], [address], 10/13/2019 16:18:27 10/13/20 19 10/13/2019 urina lysis , dipst ick, auto Unknown Analyte Negati ve Not Available [facility] [address], [place], [address], 10/13/2019 16:18:27 10/13/20 19 10/13/2019 urina lysis , dipst ick, auto Unknown Analyte Negati ve Not Available [facility] [address], [place], [address], 10/13/2019 16:18:27 10/13/20 19 10/13/2019 urina lysis , dipst ick, auto Unknown Analyte Normal Not Available [facility] [address], [place], [address], 10/13/2019 16:18:27 10/13/20 19 10/13/2019 urina lysis , dipst ick, auto Unknown Analyte Normal - 1mg/dl Not Available [facility] [address], [place], [address], 10/13/2019 16:18:27 10/13/20 19 10/13/2019 urina lysis , dipst ick, auto Unknown Analyte Negati ve Not Available [facility] [address], [place], [address], 10/13/2019 16:18:27 10/13/20 19 10/13/2019 urina lysis , dipst ick, auto Unknown Analyte Negati ve Not Available [facility] [address], [place], [address], 10/13/2019 16:18:27 10/13/20 19 10/13/2019 urina lysis , dipst ick, auto Unknown Analyte 50 Lenin/ul Not Available [facility] [address], [place], [address], 10/13/2019 16:18:27 10/13/20 19 10/13/2019 urina lysis , dipst ick, auto Unknown Analyte Negati ve Not Available [facility] [address], [place], [address], 10/13/2019 16:18:27 10/13/20 19 10/13/2019 urina lysis , dipst ick, auto Unknown Analyte Clean Catch Not Available [facility] [address], [place], [address], 10/13/2019 16:18:27 10/13/20 19 10/13/2019 urina lysis , dipst ick, auto Unknown Analyte Automa anjum Not Available [facility] [address], [place], [address], 10/13/2019 16:18:27 10/29/19 20 10/29/[facility] SEE BELOW Depar tment of Patho logy Surg laura Patho logy Repor t NAME: MAGNO KIARRA MARK PATH. :[id number] Copy [...] asia cteri stics deter mined [facility] Depar tment [...] rm high compl exity testi ng. ILA Heranndez MD Sarahi d Out Date: 11/01 15:24 Page 1 of 1 Not Available [facility], [place], [address], 11/01/2019 15:25:18 Result Notes None recorded. Problems Name Problem SNOMED Code Status Onset Date Resolution Date Notes Provider Name and Address Organization Details Recorded Time Skin sensation disturbance 39244841 Active 2015 Status: Active Not Available [employer] 6 09:53:32 Problem Notes None recorded. Procedures Surgical History Date Name Laterality Status Provider Name and Address Organization Details Recorded Time 5 gastric ulcer operation completed Socorro Mayes [facility] 10/13/2019 16:17:34 Imaging Results None recorded. Procedure [...] Updated DateTime 9 185.42 cm 22.4 kg/m2 33430.7 g 74 /min 136 mm[Hg] 80 mm[Hg] Socorro Mayes [facility] 9 16:15:06 Social History Question Answer Notes LastModified by Organizat ion Details LastModified Time Tobacco Smoking Status Never Smoker [facility]/13/2019 16:17:12 How Much Tobacco Do You [...] SNOMED-CT Code Diagnosis ICD10 Code Diagnosis Note [id number] RODRIGO HAIR MD [facility] [address] [facility] [place] [address] 10/13/2019 15:23:21 10/13/2019 16:52:16 Prostate specific antigen above reference range 339746311 R97.20 considerin g the abrupt rise of PSA suggest he consider transrecta l ultrasound -guided needle biopsy of prostate. We discussed the procedure in detail including risk of bleeding and infection. He understand s and wishes to proceed wishes to have sedation. We will arrange. [id number] RODRIGO HAIR MD SURGERY SCHEDULE [address] [place] [address] 10/29/2019 10:17:19 10/29/2019 10:19:30 Health Concerns Section Related Observation LastModified by Organization Detai ls LastModified Time None Recorded Concern Status LastModified by Organization Details LastModified Time None Recorded Advance Directives Directive None Recorded Payers Insurance Date Sequence Insurance Name Policy Number Policy Mendoza Covered Member ID Mendoza Member ID Guarantor Name 10/13/2019 2 [employer] INSURANCE mCASH - PLAN G (MEDICARE SUPPLEMENT) Mark Keene [id number] Mark Keene 10/28/2019 1 [place] Mark Keene [id number] Mark Keene Notes Date Note Type [...] has nocturia ? 1 RODRIGO HAIR MD [address] [place] [address], [address], [facility] 10/16/2019 21:47:08
--- NOTE | 2025-03-11 14:19 | A.OFFVIS_ITS ---
[facility] Disclaimer: The information contained in this section may have been updated after the patient was seen, as this information can be updated by other users. Medical History (Updated 03/10/25 @ 09:55 by Danielle Salazar MD) Low back pain Arthritis Gait disturbance Ataxia CAD (coronary artery disease) Claudication Hyperlipidemia Diabetes mellitus, type 2 Hypertension Surgical History S/P cardiac cath History of colonoscopy History of cholecystectomy Family History (Updated 03/10/25 @ 09:02 by Margo Ring) Other Diabetes No significant family history Social History Smoking Status: Never smoker alcohol intake: never substance use type: denies use current occupational status: retired Travel in the last 8 weeks?: None household members: spouse housing: house current occupational exposures/hazards: No caffeine: Yes PM Subjective & Objective Subjective Subjective:: Patient is a pleasant 75-year-old male who presents today for worsening pain. Patient rates his pain a 7 out of 10. Patient has been to our office in the past however his last visit was around September 2022. Patient was still having complaints with the same pain that we are seeing him today for. He states the pain is all at his low back that does radiate down his entire left leg. Patient states it is constant and nothing seems to help. He states that it does interfere with his ability perform activities of daily living such as cooking and cleaning. Patient has continued oral medications, heat and ice, multiple topicals including or compounded cream that we do here and gabapentin from an outside provider. Patient states he constantly does try and stay physically active and exercise but it is very limited due to the worsening pain. Patient does have a history of cardiac related issues and has had a stent placed re cently. Patient does also make mention that they did also check his circulation in that left leg and that everything was within normal limits. Patient is interested in any help we may be able to provide. Patient denies any recent imaging since 2021. His Kun has been reviewed and is appropriate. Review of Systems: General: No recent weight changes, no fever, no sleep disturbances Respiratory: No cough, no shortness of air, no recurring pulmonary infections Cardiovascular/peripheral vascular: No chest pain, no palpitations, no edema, no shortness of breath Gastrointestinal: No new onset incontinence, normal bowel movements reported Genitourinary: No new onset incontinence Musculoskeletal: Low back pain, left leg pain Psychiatric: [Normal mood/affect] Neurological: [Denies weakness in extremities], [denies balance issues] Pain at rest (0-10 scale): 7 Objective Objective:: Physical Exam: General: Alert and oriented x3, no acute distress, pleasant and cooperative Lungs: Respirations even and unlabored, symmetrical chest expansion Eyes: PERRL Musculoskeletal: Flexion and extension of lumbar [spine] somewhat guarded secondary to pain, [antalgic gait noted] positive left leg raise with decreased sensation to light touch and decreased reflexes Neurological: Speech clear, no gross sensory deficit Has patient had previous pain injection?: No Conservative treatment options previously tried: Home exercise plan Length of t reatment: Longer than 12 weeks Meds Home Medications and Allergies Home Medications ?Medication ?Instructions ?Recorded ?Confirmed ?Type metformin 500 mg tablet,extended 1,000 mg PO BID Diabetes 10/23/20 03/10/25 History release 24 hr fenofibrate micronized 134 mg 134 mg PO DAILY #90 caps 08/26/24 03/10/25 Rx capsule aclgxv-[id number]-[id number] 2 cap PO BID #100 caps 09/09/24 03/10/25 Rx 36,000-114,000-180,000 unit capsule,delay rel (Creon) metoprolol tartrate 25 mg tablet See Rx Instructions .Route 10/21/24 03/10/25 Rx .COMPLEX #180 tabs pantoprazole 40 mg tablet,delayed See Rx Instructions .Route 10/29/24 03/10/25 Rx release .COMPLEX #90 tabs gabapentin 300 mg capsule 600 mg (2 x 300 mg) PO HS #60 caps 11/28/24 03/10/25 Rx blood sugar diagnostic (Accu-Chek #100 ea 12/05/24 03/09/25 Rx Guide test strips) tramadol 50 mg tablet 50 mg PO Q8H PRN pain #30 tabs 12/10/24 03/10/25 Rx temazepam 15 mg capsule 15 mg PO HS PRN sleep #30 caps 01/16/25 03/10/25 Rx aspirin 81 mg capsule 81 mg PO DAILY #30 caps 01/27/25 03/10/25 Rx clopidogrel 75 mg tablet (Plavix) 75 mg PO DAILY #30 tabs 01/27/25 03/10/25 Rx rosuvastatin 40 mg tablet 40 mg PO DAILY #90 tabs 02/03/25 03/10/25 Rx amlodipine 5 mg-benazepril 40 mg 1 cap PO DAILY Hypertension #90 02/26/25 Rx capsule caps Tresiba FlexTouch U-200 200 See Rx Instructions .Route 03/06/25 03/10/25 Rx unit/mL (3 mL) subcutaneous pen .COMPLEX #9 mL (insulin degludec) New Prescriptions to Start Prescriptions: Allergies Allergy/AdvReac Type Severity Reaction Status Date / Time No Known Allergies Allergy Verified 03/10/25 09:01 Assessment and Plan *Assessment and plan (1) Low back pain: Status: Chronic Category: Medical Code(s): M54.50 - Low back pain, unspecified (2) Pain of left lower extremity: Status: Acute Category: Medical Code(s): M79.605 - Pain in left leg (3) Degenerative joint disease (DJD) of lumbar spine: Status: Chronic Category: Medical Code(s): M47.816 - Spondylosis without myelopathy or radiculopathy, lumbar region (4) Lumbar radiculopathy: Status: Chronic Category: Medical Code(s): M54.16 - Radiculopathy, lumbar region Plan Patient is experiencing worsening pain in his low back with symptoms radiating down his entire left leg. Patient had limited range of motion of his lumbar spine along with a positive left leg raise and decreased sensation to light touch and decreased reflexes during today's exam. I have discussed with the patient that they may benefit from a transforaminal epidural steroid injection. Risk and benefits were discussed with the patient and he would like to proceed forward with this plan of care. Patient has tried and failed conservative therapy including oral medication, heat and ice, topicals, continued at home stretching exercise for longer than 12 weeks. Patient does have significant heart history and is not a candidate currently for ongoing physical therapy due to his limited range of motion. Patient is currently on Plavix written by Dr. Dent's office. Patient was counseled that we will reach out to this provider and confirm he can stop this medication prior to this procedure. Patient was counseled that this will be contingent on this factor. Patient has had longstanding chronic back pain for longer than 5 years. Patient has not had any transforaminal epidurals in the past. We have done straightforward lumbar epidurals and these have very done how much improvement in how long. Patient has not had any epidurals whatsoever since 2020. We will schedule the patient for a left transforaminal epidural steroid injection L4-L5 and L5-S1. Patient has been instructed to contact the clinic with any concerns before the next appointment. Dr. Peralta has reviewed this note and agrees with this plan of care. This note was dictated using voice recognition software and make contain errors or omissions.
[2025-03-11 15:29] VITALS: BP 114/74; PULSE 73; RESP 18; O2SAT 97; BMI 22.4
== END 2025-03-11 23:59 | disposition home or self-care (01) ==
LOC: SC.PAIN 13:43
PROVIDERS: PCP Internal Medicine; Visit Provider Nurse Practitioner Family
DX: M54.50 Low back pain, unspecified (principal); M79.605 Pain in left leg; M47.26 Other spondylosis with radiculopathy, lumbar region; Z73.89 Other problems related to life management difficulty; Z79.02 Long term (current) use of antithrombotics/antiplatelets
CPT/HCPCS: 99202; G0463

== ENCOUNTER 2025-03-20 14:39 | Outpatient (CLI) | payer MEDICARE, SELFPAY ==
--- OUTSIDE RECORDS SUMMARY | 2025-03-20 14:41 | XMS_ITS | Data Portability ---
Author Organization [facility] - MANJEET Mccormick VAN TASSELL CLOSED Address [address] [place] [address] Care Team Providers Care Political Science Instructor Name Role Phone DANIEL GALLEGOS Referring Provider [phone] Assessment Encounter Date Assessment Date Assessment LastModified [...] Lab urinalysi s, dipstick, auto 2018 019 [email or web address] Counts Include 234 Beds At [facility], [address], [address], [place], [address], 9 16:40:18 Referral None recorded. Procedures None recorded. Surgeries None recorded. Imaging None recorded. Medication Orders Levaquin 750 mg tablet 2018 019 INTERFACE [facility]91, [address], [address], 9 16:40:27 Patient TargetsNo targets recorded. Patient Instructions Encounter Date Encounter Id Patient Instructions Last Modified By Organization Details Last Modified Time 10/13/2019 [id number] prostate biopsy: about this test Not available 10/13/2019 16:40:18 Reason for Referral None Reported. Results Created Date Observation Date Name Description Value Unit Range Abnormal Flag Note LastModifiedBy Organization Detail LastModifiedTime 10/13/20 19 10/13/2019 urina lysis , dipst ick, auto Unknown Analyte Straw Not Available [facility] [address] [address], [address], 10/13/2019 16:18:27 10/13/20 19 10/13/2019 urina lysis , dipst ick, auto Unknown Analyte Clear Not Available [facility] [address], [place], [address], 10/13/2019 16:18:27 10/13/20 19 10/13/2019 urina lysis , dipst ick, auto Unknown Analyte 1.020 Not Available [facility] [address], [place], [address], 10/13/2019 16:18:27 10/13/20 19 10/13/2019 urina lysis , dipst ick, auto Unknown Analyte 1.003 - 1.035 Not Available [facility] [address], [place], [address], 10/13/2019 16:18:27 10/13/20 19 10/13/2019 urina lysis , dipst ick, auto Unknown Analyte 5.0 Not Available [facility] U[facility] [address], [place], [address], 10/13/2019 16:18:27 10/13/20 19 10/13/2019 urina lysis , dipst ick, auto Unknown Analyte 5.0 - 8.0 Not Available [facility] [address], [place], [address], 10/13/2019 16:18:27 10/13/20 19 10/13/2019 urina lysis , dipst ick, auto Unknown Analyte Negati ve Not Available [facility] [address], [place], [address], 10/13/2019 16:18:27 10/13/20 19 10/13/2019 urina lysis , dipst ick, auto Unknown Analyte Negati ve Not Available [facility] [address], [place], [address], 10/13/2019 16:18:27 10/13/20 19 10/13/2019 urina lysis , dipst ick, auto Unknown Analyte Negati ve Not Available [facility] [address], [place], [address], 10/13/2019 16:18:27 10/13/20 19 10/13/2019 urina lysis , dipst ick, auto Unknown Analyte Negati ve Not Available [facility] [address], [place], [address], 10/13/2019 16:18:27 10/13/20 19 10/13/2019 urina lysis , dipst ick, auto Unknown Analyte Trace Not Available [facility] [address], [place], [address], 10/13/2019 16:18:27 10/13/20 19 10/13/2019 urina lysis , dipst ick, auto Unknown Analyte Negati ve - Trace Not Available [facility] [address], [place], [address], 10/13/2019 16:18:27 10/13/20 19 10/13/2019 urina lysis , dipst ick, auto Unknown Analyte 250 mg/dl Not Available [facility] [address], [place], [address], 10/13/2019 16:18:27 10/13/20 19 10/13/2019 urina lysis , dipst ick, auto Unknown Analyte Normal Not Available [facility] [address], [place], [address], 10/13/2019 16:18:27 10/13/20 19 10/13/2019 urina lysis , dipst ick, auto Unknown Analyte Negati ve Not Available [facility] [address], [place], [address], 10/13/2019 16:18:27 10/13/20 19 10/13/2019 urina lysis , dipst ick, auto Unknown Analyte Negati ve Not Available [facility] [address], [place], [address], 10/13/2019 16:18:27 10/13/20 19 10/13/2019 urina lysis , dipst ick, auto Unknown Analyte Normal Not Available [facility] [address], [place], [address], 10/13/2019 16:18:27 10/13/20 19 10/13/2019 urina lysis , dipst ick, auto Unknown Analyte Normal - 1mg/dl Not Available [facility] [address], [place], [address], 10/13/2019 16:18:27 10/13/20 19 10/13/2019 urina lysis , dipst ick, auto Unknown Analyte Negati ve Not Available [facility] [address], [place], [address], 10/13/2019 16:18:27 10/13/20 19 10/13/2019 urina lysis , dipst ick, auto Unknown Analyte Negati ve Not Available [facility] [address], [place], [address], 10/13/2019 16:18:27 10/13/20 19 10/13/2019 urina lysis , dipst ick, auto Unknown Analyte 50 Lenin/ul Not Available [facility] [address], [place], [address], 10/13/2019 16:18:27 10/13/20 19 10/13/2019 urina lysis , dipst ick, auto Unknown Analyte Negati ve Not Available [facility] [address], [place], [address], 10/13/2019 16:18:27 10/13/20 19 10/13/2019 urina lysis , dipst ick, auto Unknown Analyte Clean Catch Not Available [facility] [address], [place], [address], 10/13/2019 16:18:27 10/13/20 19 10/13/2019 urina lysis , dipst ick, auto Unknown Analyte Automa anjum Not Available [facility] [address], [place], [address], 10/13/2019 16:18:27 10/29/19 20 10/29/2019 [facility] SEE BELOW Depar [...] asia cteri stics deter [facility] Depar tment [...] 15:24 Page 1 of 1 Not Available [facility], [place], [address], 11/01/2019 15:25:18 Result Notes None recorded. Problems Name Problem SNOMED Code Status Onset Date Resolution Date Notes Provider Name and Address Organization Details Recorded Time Skin sensation disturbance 56953632 Active 2015 Status: Active Not Available [employer] 6 09:53:32 Problem Notes None recorded. Procedures Surgical History Date Name Laterality Status Provider Name and Address Organization Details Recorded Time 5 gastric ulcer operation completed Socorro Mayes [facility] 10/13/2019 16:17:34 Imaging Results None [...] Updated DateTime 9 185.42 cm 22.4 kg/m2 98535.7 g 74 /min 136 mm[Hg] 80 mm[Hg] Socorro Mayes [facility] 9 16:15:06 Social History Question [...] SNOMED-CT Code Diagnosis ICD10 Code Diagnosis Note [id number] RODRIGO HAIR MD [facility] [address] [facility] [place] [address] 10/13/2019 15:23:21 10/13/2019 16:52:16 Prostate specific antigen above reference range 011193059 R97.20 considerin g the abrupt rise of PSA suggest he consider transrecta l ultrasound -guided needle biopsy of prostate. We discussed the procedure in detail including risk of bleeding and infection. He understand s and wishes to proceed wishes to have sedation. We will arrange. [id number] RODRIGO HAIR MD SURGERY SCHEDULE [address] [place] [address] 10/29/2019 10:17:19 10/29/2019 10:19:30 Health Concerns Section Related Observation LastModified by Organization Detai ls LastModified Time None Recorded Concern Status LastModified by Organization Details LastModified Time None Recorded Advance Directives Directive None Recorded Payers Insurance Date Sequence Insurance Name Policy Number Policy Mendoza Covered Member ID Mendoza Member ID Guarantor Name 10/13/2019 2 [facility] [employer] - PLAN G (MEDICARE SUPPLEMENT) Mark Keene [id number] Mark Keene 10/28/2019 1 [place] (MEDICARE) Mark Keene [id number] Mark Keene Notes Date Note Type [...] in urination symptoms. He typically has nocturia 1 RODRIGO [place], [address], [facility] 10/16/2019 21:47:08
--- NOTE | 2025-03-20 14:45 | MR_ITS ---
FINAL REPORT CLINICAL HISTORY: ataxia instability while walking dizziness x 1 year COMPARISON: None FINDINGS: Multi planar MR imaging was obtained through the brain without contrast. The midline structures appear intact. There is no evidence of Chiari malformation. Moderate changes of atrophy are noted. There is extensive deep white matter signal consistent with chronic ischemic change. There is also localized signal in the mid hebert, that likely represent remote lacunar infarct. On diffusion-weighted images there is no evidence of restricted diffusion. The visualized paranasal sinuses demonstrate normal signal voids. The seventh and eighth nerve root complexes are intact. IMPRESSION: Moderate atrophy and chronic ischemic microvascular change, as described. No acute intracranial abnormalities identified. Reviewed, Interpreted and Dictated by Jerry Solis MD Transcribed by Missy Griffith Authenticated and [facility]
== END 2025-03-20 23:59 | disposition home or self-care (01) ==
LOC: RAD 14:40
PROVIDERS: PCP Internal Medicine; Visit Provider Specialist
DX: I67.82 Cerebral ischemia (principal); G31.9 Degenerative disease of nervous system, unspecified
CPT/HCPCS: 70551

== ENCOUNTER 2025-04-07 13:44 | Day surgery (SDC) | payer MEDICARE, SELFPAY ==
[2025-04-07 13:53] VITALS: BP 119/76; PULSE 74; RESP 18; TEMP 36.8; O2SAT 100; BMI 22.4
[2025-04-07] MEDS: LIDOCAINE 1% 5ML PF VIAL 5 ML (14:13)
[2025-04-07 14:14] VITALS: BP 152/74; PULSE 78; RESP 18; O2SAT 100
[2025-04-07] MEDS: DEXAMETHASONE 10MG/ML 1ML VIAL 10 MG (14:14)
[2025-04-07] MEDS: IOPAMIDOL-200 (41%);10ML VIAL 10 ML IV (14:15)
[2025-04-07 14:18] VITALS: BP 138/72; PULSE 74; RESP 16; O2SAT 98
--- NOTE | 2025-04-07 14:20 | P.PCN_ITS ---
Procedure Date: 04/07/25 Time: 14:00 Anesthesiologist:: Freedom Hernandez CRNA Complications:: None Pre-procedure Diagnosis:: Degenerative disc lumbar spine multilevels. Lumbar radiculopathy. Disc bulge lumbar spine L4-5, L5-S1. Spinal stenosis lumbar spine. Post-procedure Diagnosis:: Same. Indications for Procedure:: Patient is a very pleasant 75-year-old male who comes our clinic today for left L4-5, L5-S1 transforaminal epidural steroid injection. Patient describes lumbar back pain as well as left hip and leg radicular symptoms to the foot. He describes the pain as constant, dull, sharp, stabbing, intermittent. He rates his pain 7/10. Procedure Details:: Details of the procedure explained to the patient. The patient was taken to procedure room placed in the prone position. The area over the lumbar spine was cleansed using chlorhexidine as a cleansing solution. Using fluoroscopy guidance markers were placed over the left border of the L4-5 and L5-S1 vertebral body. At each marker the skin and subcutaneous tissue was an esthetized using 1% lidocaine and a 25-gauge needle. At this time using fluoroscopy guidance 3 and half inch 22-gauge spinal needle was used to access the upper one third of the left L4 for 5 and L5-S1 foramen. Using fluoroscopy guidance in the lateral position needle position was confirmed using 0.5 mL of contrast dye. Good spread was noted in the epidural space at each level. After negative aspiration 2 mL of 1% lidocaine and 40 mg of Depo-Medrol was injected at each level. Patient tolerated procedure without difficulty. There are no complications. Plan and Disposition:: Patient was discharged without incident.
[2025-04-07 14:22] VITALS: BP 152/74; PULSE 78; RESP 18; O2SAT 100
[2025-04-07 15:43] LABS: POC Glucose,Bedside 227 (70-110)
== END 2025-04-07 14:18 | disposition home or self-care (01) ==
PROVIDERS: PCP Internal Medicine; Visit Provider Nurse Anesthetist, Certified Registered
DX: M51.16 Intervertebral disc disorders with radiculopathy, lumbar region (principal); M48.061 Spinal stenosis, lumbar region without neurogenic claudication; M47.816 Spondylosis without myelopathy or radiculopathy, lumbar region; I25.10 Atherosclerotic heart disease of native coronary artery without angina pectoris; E78.5 Hyperlipidemia, unspecified; I10 Essential (primary) hypertension; E11.9 Type 2 diabetes mellitus without complications; Z79.84 Long term (current) use of oral hypoglycemic drugs; Z79.899 Other long term (current) drug therapy; Z79.82 Long term (current) use of aspirin; Z79.02 Long term (current) use of antithrombotics/antiplatelets; Z79.4 Long term (current) use of insulin
CPT/HCPCS: 62323; 82962; J1100; J2003; Q9966

== ENCOUNTER 2025-06-10 15:45 | Outpatient (CLI) | payer MEDICARE, SELFPAY ==
--- OUTSIDE RECORDS SUMMARY | 2025-06-11 12:04 | XMS_ITS | Clinical Summary ---
Author Organization Healthcare Address [address] [place] [address] Care Team Providers Care Stores Despatch Hand Name Role Phone Elian Gallegos MD Primary Care Provider [phone] Family History Medical History Relation Name Comments Diabetes Mother Relation Name Status Comments Mother Social History Tobacco Use Types Packs/Day Years Used Date Smoking Tobacco: Never Alcohol Use Standard Drinks/Week Comments No 0 (1 standard drink = 0.6 oz pur e alcohol) Sex and Gender Information Value Date Recorded Sex Assigned at Not on file Legal Sex Male 8:03 PM EDT Gender Identity Not on file Sexual Orientation Not on file Last Filed Vital Signs Vital Sign Reading Time Taken Comments Blood Pressure - - Pulse - - Temperature - - Respiratory Rate - - Oxygen Saturation - - Inhaled Oxygen Concentration - - Weight 74.4 kg (164 lb) 08/18/2015 2:29 PM EDT Height 185.4 cm (6' 1 ) 08/18/2015 2:29 PM EDT Body Mass Index 21.64 08/18/2015 2:29 PM EDT Plan of Treatment Not on file Care Teams Stores Despatch Hand Relationship Specialty Start Date End Date Elian Gallegos MD [address] [place] [address] [address] [facility] Zheng [id number] PCP - General 03/04/21
== END 2025-06-10 23:59 | disposition home or self-care (01) ==
LOC: LAB.DROPOF 06-11 12:02
PROVIDERS: PCP Internal Medicine; Visit Provider Internal Medicine
DX: T81.49XA Infection following a procedure, other surgical site, initial encounter (principal)
CPT/HCPCS: 87070; 87205

== ENCOUNTER 2025-06-23 10:00 | Outpatient (CLI) | payer MEDICARE, SELFPAY ==
[2025-06-23 15:31] LABS: Alanine Aminotransferase 20 U/L (12-78); Albumin Level 4.2 g/dl (3.5-5.0); Albumin/Globulin Ratio 1.7 (1.1-1.8); Alkaline Phosphatase 73 U/L (38-126); Anion Gap 15.0 mEq/L (5-15); Aspartate Amino Transferase 23 U/L (17-59); Bilirubin,Total 1.8 mg/dl (0.2-1.3); Blood Urea Nitrogen 20 mg/dl (9-20); Calcium 9.3 mg/dl (8.4-10.2); Carbon Dioxide 28 mmol/L (22.0-30.0); Chloride 103 mmol/L (98-107); Cholesterol 82 mg/dl (140-200); Creatinine,Serum 1.30 mg/dl (0.66-1.25); Estimated Glomerular Filt Rate 54 ml/min (>60); GFR (African American) 65 ML/MIN (>60); Globulin 2.5 g/dL (1.3-3.2); Glucose 68 mg/dl (74-100); HDL Cholesterol 37 mg/dl (40-60); Potassium 4.0 mmoL/L (3.5-5.1); Sodium 142 mmol/L (136-145); Total Protein,Serum 6.7 g/dl (6.3-8.2); Triglycerides 135 mg/dl (30-150)
[2025-06-23 16:03] LABS: Hemoglobin A1C 8.2 % (4.0-6.0)
--- OUTSIDE RECORDS SUMMARY | 2025-06-24 11:22 | XMS_ITS | Clinical Summary ---
Author Organization Healthcare Address [address] [place] [address] Care Team Providers Care Business Development Engineer Name Role Phone Elian Gallegos MD Primary Care Provider [phone] Family History Medical History Relation Name Comments [...] of Treatment Not on file Care Teams Business Development Engineer Relationship Specialty Start Date End Date Elian Gallegos MD [address] [place] [address] [address] [facility] Zheng [id number] PCP - General 03/04/21
== END 2025-06-23 23:59 | disposition home or self-care (01) ==
LOC: LAB.DROPOF 06-24 11:03
PROVIDERS: PCP Internal Medicine; Visit Provider Internal Medicine
DX: E11.59 Type 2 diabetes mellitus with other circulatory complications (principal); E11.42 Type 2 diabetes mellitus with diabetic polyneuropathy; I10 Essential (primary) hypertension; E78.5 Hyperlipidemia, unspecified
CPT/HCPCS: 80053; 80061; 83036